=== PATIENT | male | born 1970 | race Caucasian/White ===

== ENCOUNTER 2017-07-20 10:49 | Day surgery (SDC) | payer SELFPAY ==
[2017-07-20] MEDS ORDERED: Glucagon,Human Recombinant 1 MG Vial IM ONE (11:28)
[2017-07-20] MEDS ORDERED: Sodium Chloride 0.9% 1,000 ML IV ONE (11:29)
--- NOTE | 2017-07-20 11:37 | EDM.PDOC ---
ED HPI GENERAL MEDICAL PROBLEM - General Chief Complaint: ENT Problem Stated Complaint: FOOD STUCK IN THROAT Time Seen by Provider: 07/20/17 11:31 Source of Information: Reports: Patient History Limitations: Reports: No Limitations - History of Present Illness INITIAL COMMENTS - FREE TEXT/NARRATIVE: HISTORY AND PHYSICAL: History of present illness: Patient is a 46-year-old male who presents to the emergency room today with complaints of a food bolus stuck in his throat. Reports that on Friday evening he was eating a hot dog and felt the sensation of a food bolus in his esophagus. States he's had half a dozen episodes similar to this in the past. He has had an EGD done and was told he has strictures but not enough to have his esophagus dilated by a specialist. After having the food bolus patient did multiple home remedies without any success. States he's tried Coca-Cola, warm water, salt water gargles, eating soft foods - all of which, he is unable to swallow and results in vomiting. He denies any difficulty breathing. Stating he is able to sleep for multiple hours before needing to get up and spit. Review of systems: As per history of present illness and below otherwise all systems reviewed and negative. Past medical history: As per history of present illness and as reviewed below otherwise noncontributory. Surgical history: As per history of present illness and as reviewed below otherwise noncontributory. Social history: No reported history of drug or alcohol abuse. Family history: As per history of present illness and as reviewed below otherwise noncontributory. Physical exam: Gen.: Well-developed and well-nourished 46-year-old male. Able to speak in full sentences without shortness of breath. Alert and oriented. HEENT: Atraumatic, normocephalic, pupils reactive, negative for conjunctival pallor or scleral icterus, mucous membranes moist, throat clear, unable to visualize any foreign body, neck supple, nontender, trachea midline. Lungs: Clear to auscultation, breath sounds equal bilaterally, chest nontender. Heart: S1S2, regular, negative for clicks, rubs, or JVD. Abdomen: Soft, obese, nondistended, nontender. Negative for masses or hepatosplenomegaly. Negative for costovertebral tenderness. Pelvis: Stable nontender. Genitourinary: Deferred. Rectal: Deferred. Extremities: Atraumatic, moves all per self, negative for cords or calf pain. Neurovascular unremarkable. Neuro: Awake, alert, oriented. Cranial nerves II through XII unremarkable. Cerebellum unremarkable. Motor and sensory unremarkable throughout. Exam nonfocal. Patient is requesting a steroid for his gout and headache. Patient states he does not want a work-up for his c/o gout as he already take controller medications for this, but thought he could get steriods to help alleviate his pain in left foot and headache. I educated patient that, that wasn't indicated at this time. I suggested we give some Toradol since he has IV access. His allergies do state he has allergy to aspirin. Patient states he takes ibuprofen frequently without any complications. Is willing to give Toradol a try. Attempted by mouth challenge which was unsuccessful. Dr. Dumont has been paged at this time. Patient has a card for Anesthesia, explaining that he is a difficult airway. A copy was made and placed in his chart. Christ Thomas, JEREMIAS who is here for another case, was informed of this. Waiting on consult from Dr. Dumont 1200- Dr Dumont was consulted on this case and will come to see patient. Patient is aware and agreeable to plan of care. 1250- Dr Dumont here to see patient. Plan is to take patient to same day surgery. Anesthesia is here. Diagnostics: CBC, CMP Therapeutics: Glucagon 1 mg Toradol IV fluid Impression: Food bolus Plan: Dr. Dumont has assumed care of patient, Same Day Surgery Definitive disposition and diagnosis as appropriate pending reevaluation and review of above. Onset Date: 07/18/17 Duration: Day(s): Location: Reports: Neck Worsens with: Reports: Eating Throat Pain Score (Numeric/FACES): 8 - Related Data Allergies Allergy/AdvReac Type Severity Reaction Status Date / Time aspirin Allergy Anaphylactic Verified 07/20/17 11:04 Shock Penicillins Allergy Anaphylactic Verified 07/20/17 11:04 Shock Home Meds: Home Meds Albuterol [Ventolin HFA] 2 puff INH ASDIRECTED PRN 08/14/16 [History] Allopurinol [Zyloprim] 300 mg PO ASDIRECTED 08/14/16 [History] Hydrochlorothiazide 1 tab PO DAILY 09/03/16 [History] Past Medical History HEENT History: Reports: Allergic Rhinitis, Other (See Below) Other HEENT History: "overactive esophageal muscles" esophagoscopy with foreign body removal x3 Cardiovascular History: Reports: Hypertension Respiratory History: Reports: Asthma, COPD, Sleep Apnea Other Respiratory History: uses CPAP Gastrointestinal History: Reports: Gastritis Genitourinary History: Reports: None Musculoskeletal History: Reports: Arthritis, Gout Neurological History: Reports: None Psychiatric History: Reports: None Endocrine/Metabolic History: Reports: Obesity/BMI 30+ Hematologic History: Reports: None Immunologic History: Reports: None Oncologic (Cancer) History: Reports: None Dermatologic History: Reports: None, Other (See Below) Other Dermatologic History: has rash on legs - Infectious Disease History Infectious Disease History: Reports: Chicken Pox - Past Surgical History Head Surgeries/Procedures: Reports: None HEENT Surgical History: Reports: Other (See Below) Other HEENT Surgeries/Procedures: "throat stretched" Cardiovascular Surgical History: Reports: None GI Surgical History: Reports: Appendectomy, Esophageal Dilatation, Hernia Repair /Other Male Surgical History: Reports: None Endocrine Surgical History: Reports: None Neurological Surgical History: Reports: None Musculoskeletal Surgical History: Reports: None Oncologic Surgical History: Reports: None Social & Family History - Family History Family Medical History: Noncontributory - Tobacco Use Smoking Status *Q: Never Smoker Second Hand Smoke Exposure: No - Alcohol Use Days Per Week of Alcohol Use: 0 Number of Drinks Per Day: 5 Total Drinks Per Week: 0 - Recreational Drug Use Recreational Drug Use: No Drug Use in Last 12 Months: No ED ROS ENT - Review of Systems Review Of Systems: ROS reveals no pertinent complaints other than HPI. ED EXAM, ENT - Physical Exam Exam: See Below (See dictation) Course - Vital Signs Last Recorded V/S: Last Vital Signs Temp 36.4 C 07/20/17 11:01 Pulse 75 07/20/17 12:41 Resp 18 07/20/17 12:41 BP 153/88 H 07/20/17 12:41 Pulse Ox 97 07/20/17 12:41 - Orders/Labs/Meds Orders: Active Orders 24 hr Category Date Time Status Admission Status [Patient Status] [ADT] Routine ADT 07/20/17 13:22 Ordered Communication Order [RC] STAT Care 07/20/17 11:30 Active Ready for Discharge [RC] PER UNIT ROUTINE Care 07/20/17 13:12 Active Verify Patient Consent Obtain [RC] ASDIRECTED Care 07/20/17 13:09 Active Nothing per Oral After Midnight Diet [DIET] Diet 07/20/17 Breakfast Active Chest 1V Frontal [CR] Stat Exams 07/20/17 12:01 Taken Lactated Ringers [Ringers, Lactated] 1,000 ml Med 07/20/17 13:15 Active IV ASDIRECTED Medication Orders Lactated Ringer's (Ringers, Lactated) 1,000 mls @ 125 mls/hr IV ASDIRECTED ZEENAT Last Admin: 07/20/17 13:14 Dose: 125 mls/hr Labs: Laboratory Tests 07/20/17 07/20/17 Range/Units 11:45 11:45 WBC 9.45 (4.0-11.0) K/uL RBC 4.70 (4.50-5.90) M/uL Hgb 15.0 (13.0-17.0) g/dL Hct 46.1 (38.0-50.0) % MCV 98.1 H (80.0-98.0) fL MCH 31.9 (27.0-32.0) pg MCHC 32.5 (31.0-37.0) g/dL RDW Std Deviation 47.6 (28.0-62.0) fl RDW Coeff of Ileana 13 (11.0-15.0) % Plt Count 254 (150-400) K/uL MPV 9.50 (7.40-12.00) fL Neut % (Auto) 68.7 (48.0-80.0) % Lymph % (Auto) 17.8 (16.0-40.0) % [place] % (Auto) 7.6 (0.0-15.0) % Eos % (Auto) 5.5 (0.0-7.0) % Baso % (Auto) 0.4 (0.0-1.5) % Neut # (Auto) 6.5 H (1.4-5.7) K/uL Lymph # (Auto) 1.7 (0.6-2.4) K/uL [place] # (Auto) 0.7 (0.0-0.8) K/uL Eos # (Auto) 0.5 (0.0-0.7) K/uL Baso # (Auto) 0.0 (0.0-0.1) K/uL Nucleated RBC % 0.0 /100WBC Nucleated RBCs # 0 K/uL Sodium 146 (136-146) mmol/L Potassium 4.2 (3.5-5.1) mmol/L Chloride 109 (98-110) mmol/L Carbon Dioxide 27 (21-31) mmol/L BUN 16 (6.0-23.0) mg/dL Creatinine 0.9 (0.6-1.5) mg/dL Est Cr Clr Drug Dosing 108.15 mL/min Estimated GFR (MDRD) > 60.0 ml/min Glucose 105 (60-110) mg/dL Calcium 9.8 (8.8-10.8) mg/dL Total Bilirubin 0.8 (0.1-1.5) mg/dL AST 20 (5-40) IU/L ALT 47 (8-54) IU/L Alkaline Phosphatase 75 (40-150) Total Protein 8.0 (6.0-8.0) g/dL Albumin 4.3 (3.5-5.0) g/dL Globulin 3.7 H (2.0-3.5) g/dL Albumin/Globulin Ratio 1.2 L (1.3-2.8) Meds: Medications Generic Name Dose Route Start Last Admin Trade Name Freq PRN Reason Stop Dose Admin Lactated Ringer's 1,000 mls @ 125 mls/hr 07/20/17 13:15 07/20/17 13:14 Ringers, Lactated IV 125 mls/hr ASDIRECTED ZEENAT Administration Discontinued Medications Generic Name Dose Route Start Last Admin Trade Name Freq PRN Reason Stop Dose Admin Glucagon 1 mg 07/20/17 11:28 07/20/17 11:44 Glucagen IM 07/20/17 11:29 1 mg ONETIME ONE Administration Sodium Chloride 1,000 mls @ 999 mls/hr 07/20/17 11:29 07/20/17 11:44 Normal Saline IV 07/20/17 12:29 999 mls/hr STAT ONE Administration Ketorolac Tromethamine 30 mg 07/20/17 11:55 07/20/17 12:03 Toradol IVPUSH 07/20/17 11:56 30 mg ONETIME ONE Administration Departure - Departure Time of Disposition: 13:26 Disposition: Still A Patient 30 Clinical Impression: Sensation of foreign body in esophagus, Foreign body in esophagus - Discharge Information - My Orders Last 24 Hours: My Active Orders 07/20/17 11:30 Communication Order [RC] STAT 07/20/17 12:01 Chest 1V Frontal [CR] Stat 07/20/17 13:22 Admission Status [Patient Status] [ADT] Routine - Assessment/Plan Last 24 Hours: My Active Orders 07/20/17 11:30 Communication Order [RC] STAT 07/20/17 12:01 Chest 1V Frontal [CR] Stat 07/20/17 13:22 Admission Status [Patient Status] [ADT] Routine
[2017-07-20] MEDS ORDERED: Ketorolac 30 MG/ML SDV IVPUSH ONE (11:55)
[2017-07-20 12:12] LABS: CHLORIDE,CL 109 mmol/L (98-110); SODIUM,NA 146 mmol/L (136-146)
[2017-07-20] MEDS ORDERED: Lactated Ringers 1,000 ML IV SCH (13:15)
--- NOTE | 2017-07-20 13:45 | PCM.PREANE ---
Preanesthetic Assessment - Anesthesia/Transfusion/Family Hx Anesthesia History: Prior Anesthesia Reaction Other Type of Anesthesia Reaction Comment: chest pain post-op Transfusion History: No Prior Transfusion(s) Intubation History: History of Difficulty Intubation (x 3 at this hospital) - Review of Systems General: No Symptoms Pulmonary: No Symptoms Cardiovascular: No Symptoms Gastrointestinal: No Symptoms Neurological: No Symptoms Other: Reports: None - Physical Assessment O2 Sat by Pulse Oximetry: 97 Respiratory Rate: 18 Vital Signs: Last Vital Signs Temp 97.5 F 07/20/17 11:01 Pulse 75 07/20/17 12:41 Resp 18 07/20/17 12:41 BP 153/88 H 07/20/17 12:41 Pulse Ox 97 07/20/17 12:41 Height: 5 ft 10 in Weight: 144.8 kg ASA Class: 3E Mental Status: Alert & Oriented x3 Airway Class: Mallampati = 4 Dentition: Reports: Normal Dentition Thyro-Mental Finger Breadths: 2 Mouth Opening Finger Breadths: 3 ROM/Head Extension: Full Lungs: Clear to Auscultation, Normal Respiratory Effort Cardiovascular: Regular Rate, Regular Rhythm - Lab Values: Laboratory Last Values WBC 9.45 K/uL (4.0-11.0) 07/20/17 11:45 RBC 4.70 M/uL (4.50-5.90) 07/20/17 11:45 Hgb 15.0 g/dL (13.0-17.0) 07/20/17 11:45 Hct 46.1 % (38.0-50.0) 07/20/17 11:45 MCV 98.1 fL (80.0-98.0) H 07/20/17 11:45 MCH 31.9 pg (27.0-32.0) 07/20/17 11:45 MCHC 32.5 g/dL (31.0-37.0) 07/20/17 11:45 RDW Std Deviation 47.6 fl (28.0-62.0) 07/20/17 11:45 RDW Coeff of Ileana 13 % (11.0-15.0) 07/20/17 11:45 Plt Count 254 K/uL (150-400) 07/20/17 11:45 MPV 9.50 fL (7.40-12.00) 07/20/17 11:45 Neut % (Auto) 68.7 % (48.0-80.0) 07/20/17 11:45 Lymph % (Auto) 17.8 % (16.0-40.0) 07/20/17 11:45 [place] % (Auto) 7.6 % (0.0-15.0) 07/20/17 11:45 Eos % (Auto) 5.5 % (0.0-7.0) 07/20/17 11:45 Baso % (Auto) 0.4 % (0.0-1.5) 07/20/17 11:45 Neut # (Auto) 6.5 K/uL (1.4-5.7) H 07/20/17 11:45 Lymph # (Auto) 1.7 K/uL (0.6-2.4) 07/20/17 11:45 [place] # (Auto) 0.7 K/uL (0.0-0.8) 07/20/17 11:45 Eos # (Auto) 0.5 K/uL (0.0-0.7) 07/20/17 11:45 Baso # (Auto) 0.0 K/uL (0.0-0.1) 07/20/17 11:45 Nucleated RBC % 0.0 /100WBC 07/20/17 11:45 Nucleated RBCs # 0 K/uL 07/20/17 11:45 Sodium 146 mmol/L (136-146) 07/20/17 11:45 Potassium 4.2 mmol/L (3.5-5.1) 07/20/17 11:45 Chloride 109 mmol/L (98-110) 07/20/17 11:45 Carbon Dioxide 27 mmol/L (21-31) 07/20/17 11:45 BUN 16 mg/dL (6.0-23.0) 07/20/17 11:45 Creatinine 0.9 mg/dL (0.6-1.5) 07/20/17 11:45 Est Cr Clr Drug Dosing 108.15 mL/min 07/20/17 11:45 Estimated GFR (MDRD) > 60.0 ml/min 07/20/17 11:45 Glucose 105 mg/dL (60-110) 07/20/17 11:45 Calcium 9.8 mg/dL (8.8-10.8) 07/20/17 11:45 Total Bilirubin 0.8 mg/dL (0.1-1.5) 07/20/17 11:45 AST 20 IU/L (5-40) 07/20/17 11:45 ALT 47 IU/L (8-54) 07/20/17 11:45 Alkaline Phosphatase 75 (40-150) 07/20/17 11:45 Total Protein 8.0 g/dL (6.0-8.0) 07/20/17 11:45 Albumin 4.3 g/dL (3.5-5.0) 07/20/17 11:45 Globulin 3.7 g/dL (2.0-3.5) H 07/20/17 11:45 Albumin/Globulin Ratio 1.2 (1.3-2.8) L 07/20/17 11:45 - Allergies Allergies/Adverse Reactions: Allergies Allergy/AdvReac Type Severity Reaction Status Date / Time aspirin Allergy Anaphylactic Verified 07/20/17 11:04 Shock Penicillins Allergy Anaphylactic Verified 07/20/17 11:04 Shock - Anesthesia Plan Free Text/Narrative:: The patient and his significant other were at the bedside during the anesthesia assessment. The patient does have a history of difficult intubation at this hospital on three separate occasions. I explained to the patient that there still remains a chance that we may not be able to get him intubate and that we would wake him up instead of proceeding with the procedure. I also explained the possibility of Circo and trach placement should an emergent airway become necessary during induction. The patient understands and wishes to proceed at this time. - Acknowledgements Anesthesia Type Planned: General Anesthesia Pt an Appropriate Candidate for the Planned Anesthesia: Yes Alternatives and Risks of Anesthesia Discussed w Pt/Guardian: Yes Pt/Guardian Understands and Agrees with Anesthesia Plan: Yes PreAnesthesia Questionnaire HEENT History: Reports: Allergic Rhinitis, Other (See Below) Other HEENT History: "overactive esophageal muscles" esophagoscopy with foreign body removal x3 Cardiovascular History: Reports: Hypertension Respiratory History: Reports: Asthma, COPD, Sleep Apnea Other Respiratory History: uses CPAP Gastrointestinal History: Reports: Gastritis Genitourinary History: Reports: None Musculoskeletal History: Reports: Arthritis, Gout Neurological History: Reports: None Psychiatric History: Reports: None Endocrine/Metabolic History: Reports: Obesity/BMI 30+, Other (See Below) (Gout) Hematologic History: Reports: None Immunologic History: Reports: None Oncologic (Cancer) History: Reports: None Dermatologic History: Reports: None, Other (See Below) Other Dermatologic History: has rash on legs - Infectious Disease History Infectious Disease History: Reports: Chicken Pox - Past Surgical History Head Surgeries/Procedures: Reports: None HEENT Surgical History: Reports: Other (See Below) Other HEENT Surgeries/Procedures: "throat stretched" Cardiovascular Surgical History: Reports: None GI Surgical History: Reports: Appendectomy, Esophageal Dilatation, Hernia Repair /Other (umbilical x1 with revision for infection x 1) Male Surgical History: Reports: None Endocrine Surgical History: Reports: None Neurological Surgical History: Reports: None Musculoskeletal Surgical History: Reports: None Oncologic Surgical History: Reports: None - SUBSTANCE USE Smoking Status *Q: Never Smoker Tobacco Use Within Last Twelve Months: No Second Hand Smoke Exposure: No Days Per Week of Alcohol Use: 0 Number of Drinks Per Day: 5 Total Drinks Per Week: 0 Recreational Drug Use History: No - HOME MEDS Home Medications: Home Meds Albuterol [Ventolin HFA] 2 puff INH ASDIRECTED PRN 08/14/16 [History] Allopurinol [Zyloprim] 300 mg PO ASDIRECTED 08/14/16 [History] Hydrochlorothiazide 1 tab PO DAILY 09/03/16 [History] - CURRENT (IN HOUSE) MEDS Current Meds: Current Medications Lactated Ringer's (Ringers, Lactated) 1,000 mls @ 125 mls/hr IV ASDIRECTED [facility] Last Admin: 07/20/17 13:14 Dose: 125 mls/hr Discontinued Medications Glucagon (Glucagen) 1 mg IM ONETIME ONE Stop: 07/20/17 11:29 Last Admin: 07/20/17 11:44 Dose: 1 mg Sodium Chloride (Normal Saline) 1,000 mls @ 999 mls/hr IV STAT ONE Stop: 07/20/17 12:29 Last Admin: 07/20/17 11:44 Dose: 999 mls/hr Ketorolac Tromethamine (Toradol) 30 mg IVPUSH ONETIME ONE Stop: 07/20/17 11:56 Last Admin: 07/20/17 12:03 Dose: 30 mg
--- NOTE | 2017-07-20 14:20 | PCM.OPNOTE ---
- General Post-Op/Procedure Note Date of Surgery/Procedure: 07/20/17 Operative Procedure(s): egd w fb extraction Findings: see dict [id number] Pre Op Diagnosis: food lodged Post-Op Diagnosis: Same Anesthesia Technique: General ET Tube Primary Surgeon: Martin Dumont Condition: Fair
[2017-07-20] MEDS ORDERED: Propofol 200 MG/20 ML SDV ONE (14:22)
[2017-07-20] MEDS ORDERED: fentaNYL 100 MCG/2 ML SDV ONE (14:22)
[2017-07-20] MEDS ORDERED: Lidocaine 2% 5 ML SDV ONE (14:22)
[2017-07-20] MEDS ORDERED: Succinylcholine/Normal Saline 200 MG/10 ML Syringe ONE (14:22)
[2017-07-20] MEDS ORDERED: Dexamethasone 4 MG/ML 5 ML MDV ONE (14:22)
[2017-07-20] MEDS ORDERED: Midazolam 1 MG/ML 2 ML SDV ONE (14:22)
[2017-07-20] MEDS ORDERED: Ondansetron 4 MG/2 ML SDV ONE (14:22)
[2017-07-20] MEDS ORDERED: Rocuronium 10 MG/ML 10 ML Syringe ONE (14:22)
--- NOTE | 2017-07-20 14:57 | PCM.SN ---
- Free Text/Narrative Note: Induction/Intubation Note The patient was brought to OR - 3 per cart, beach chair (HOB 30 degrees) position was obtained and a pillow was tucked underneath the patients shoulders. This allowed for full extension and the patient denies any pain with positioning. The patient was then pre-oxygenated while monitoring was attached. RSI was performed per anesthesia flow sheet. 4.0 LMA was placed easily with easy manual respirations. Once an adequate level of sevoflurane was obtained, the LMA was removed and Glidescope #4 was introduced, Grade I view was noted, 8.0 ETT was placed using rigid glide scope stylet. +BBS and + EtCO2. The patient tolerated induction without any complications. It should also be noted that full relaxation was obtained using the induction doses I have documented. See anesthesia flow sheet for all other intra-op documentation on this patient.
--- NOTE | 2017-07-20 14:59 | PCM.POSTAN ---
POST ANESTHESIA ASSESSMENT - MENTAL STATUS Mental Status: Alert, Oriented - RESPIRATORY Respiratory Status: Respiratory Rate WNL, Airway Patent, O2 Saturation Stable - CARDIOVASCULAR CV Status: Pulse Rate WNL, Blood Pressure Stable - GASTROINTESTINAL GI Status: No Symptoms - POST OP HYDRATION Hydration Status: Adequate & Stable
--- NOTE | 2017-07-20 15:10 | OR ---
SURGEON: Martin Dumont MD DATE OF PROCEDURE: 07/20/2017 PREOPERATIVE DIAGNOSIS: Food stuck in the throat. POSTOPERATIVE DIAGNOSIS: Food stuck in the throat. PROCEDURE PERFORMED: Esophagogastroduodenoscopy with foreign body extraction. COMPLICATIONS: None. FINDINGS: A piece of meat, very large, that is already pretty mushy and it has been three days, so the piece of meat is not impact and is moving in the esophagus, moving up and down, broke into two pieces, one piece took it out and another piece pushed in. We scoped all the way to the duodenum, no stricture observed. DESCRIPTION OF PROCEDURE: The patient was taken to the operating room and placed in supine position. Upon induction of general endotracheal anesthesia, a time-out was being called, the patient was identified, procedure identified. The patient had difficult airway and the patient was intubated with fiberoptic and then well lubricated EGD was then gently inserted through the oropharynx down into the esophagus. Right at the beginning of the esophagus that is right after the pharynx, a piece of meat was encountered. It is not impacted and it is presently moving freely up and down, but is already very decayed, it has been three days, grabbed it with biopsy forceps and broken in two pieces, upper piece we retrieved through the scope and the other half pushed into the stomach. GE junction at 40 was pretty inflamed. Stomach was pretty empty. No food particle. No bile. Duodenum was grossly normal. A retroflexed look at the fundus of stomach, there was no hiatal hernia. The scope was then sucked out the air and withdrawn. Throughout the whole study, there was no blood, ulcer, or stricture encountered. The patient will be on liquid diet for 2 days because of the edema and inflammation and will follow with me in two weeks. As always, thank you for the kind referral. MIGDALIA / TEDDY /[id number]
--- NOTE | 2017-07-20 15:30 | PCM48HPAN ---
Post Anesthesia Note - EVALUATION WITHIN 48HRS OF ANESTHETIC Vital Signs in Normal Range: Yes Patient Participated in Evaluation: Yes Respiratory Function Stable: Yes Airway Patent: Yes Cardiovascular Function Stable: Yes Hydration Status Stable: Yes Pain Control Satisfactory: Yes Nausea and Vomiting Control Satisfactory: Yes Mental Status Recovered: Yes - COMMENTS/OBSERVATIONS Free Text/Narrative:: Discussed with the patient and his spouse how intubation went this time. New updated difficult airway card was issued with what works well and with what has failed in the past.
[2017-07-20 16:54] VITALS: BP 147/71
--- NOTE | 2017-07-21 10:37 | HP ---
DATE OF : 1970 PRIMARY CARE PHYSICIAN: Randy Nguyen MD HISTORY OF PRESENT ILLNESS: The patient is a 46-year-old obese gentleman and complaining over a 3-day history of food block and cannot swallow own saliva. Denied shortness of breath, denied syncope, and denied chest pain or abdominal pain. The patient has a long history of several episodes of food block and the latest one was balloon dilatation in [place] by a specialist. The patient also had difficult airway. PAST MEDICAL HISTORY: Denied diabetes, [place], or CVA. The patient has hypertension. PAST SURGICAL HISTORY: Umbilical hernia repair by Dr. Schaffer 1 year ago and an EGD with dilatation several years ago. ALLERGIES: Please refer to nursing note for detail. MEDICATION: Please refer to nursing note for detail. SOCIAL HISTORY: Noncontributory. REVIEW OF SYSTEMS: Same as history of present illness. PHYSICAL EXAMINATION: GENERAL: A very pleasant, nice gentleman, in no acute distress. HEENT: Normocephalic, atraumatic. Sclerae anicteric. LUNGS: Clear to auscultation. HEART: Regular rate and rhythm. ABDOMEN: Soft, nondistended. No pulsating tender midline abdominal structure. Nontender. IMPRESSION: Food block in the throat for about 2-1/2 days. The patient had a glass of water, he choked and spit it all and required to have an EGD with foreign body extraction. Risks and benefits were discussed with the patient including bleeding, infection, and perforation. The patient concurred to proceed as planned. As always, thank you for the kind referral. MIGDALIA / TEDDY /[id number]
--- NOTE | 2017-07-23 10:09 | CR ---
EXAM DATE: 07/20/17 PATIENT'S AGE: 46 Patient: AQUILES NORTON Facility: [facility] Site Site : 1970 Study: XRay-Chest [id number] 3:17:09 PM Ordering Physician: ANSON Final Report: INDICATION: PAIN, SHORTNESS OF BREATH TECHNIQUE: Chest 1 view. COMPARISON: 11/08/2014 FINDINGS: Cardiovascular and mediastinum: Heart size and vasculature are normal in caliber and appearance. Mediastinum is within normal limits. Lungs and pleural space: Lungs are clear. No sign of infiltrate or mass. No sign of pleural effusion. No pneumothorax. Bones and soft tissues: No significant findings. IMPRESSION: Unremarkable chest. Dictated by: Santos Schaffer MD @ 07/22/2017 15:51:31 Signed by: Santos Schaffer MD @07/22/2017 3:51:31 PM (Electronic Signature) Report Signed by Proxy. [facility]
== END 2017-07-20 17:10 | disposition home or self-care (01) ==
LOC: MW.ED 10:49 → MW.SDS 13:19 → MW.MS 13:21 → UNDOADMOB 13:22 → MW.SDS 13:22 → MW.MS 15:19 → MW.SDS 17:10 → UNDODISOB 17:10
PROVIDERS: ATTEND Surgery
DX: T18.128A Food in esophagus causing other injury, initial encounter (principal); E66.9 Obesity, unspecified; I10 Essential (primary) hypertension; J44.9 Chronic obstructive pulmonary disease, unspecified; G47.30 Sleep apnea, unspecified; M19.90 Unspecified osteoarthritis, unspecified site; M10.9 Gout, unspecified; Z90.49 Acquired absence of other specified parts of digestive tract; Z98.890 Other specified postprocedural states; Z88.0 Allergy status to penicillin; Z88.6 Allergy status to analgesic agent; Z99.89 Dependence on other enabling machines and devices
CPT/HCPCS: 36415; 43247; 71010; 80053; 85025; 96361; 96372; 96374; 99284; J1100; J1610; J1885; J2250; J2405; J3010; J7040; J7120; 00740; 99285; J2704

== ENCOUNTER 2017-09-16 19:26 | Day surgery (SDC) | payer BC ==
[2017-09-16] MEDS ORDERED: Ondansetron 4 MG/2 ML SDV IVPUSH ONE (19:48)
[2017-09-16] MEDS ORDERED: Glucagon,Human Recombinant 1 MG Vial IVPUSH ONE (19:48)
--- NOTE | 2017-09-16 20:05 | EDM.PDOC ---
ED HPI GENERAL MEDICAL PROBLEM - General Chief Complaint: ENT Problem Stated Complaint: FOOD STUCK IN THROAT Time Seen by Provider: 09/16/17 19:37 Source of Information: Reports: Patient History Limitations: Reports: No Limitations - History of Present Illness INITIAL COMMENTS - FREE TEXT/NARRATIVE: HISTORY AND PHYSICAL: History of present illness: Patient is a 46-year-old male who presents to the emergency room with complaints of a food bolus in his esophagus. He states around 5 PM this evening he was eating pork ribs and corn felt a piece of food lodged in his esophagus. He reports he has had similar episodes to this at least a half a dozen times. The last episode required Dr. Florentino to take him back to the OR on 07/20/2017. Has had an EGD with dilation many years ago. States that they have been waiting for his primary caregiver to give him a referral to have an EGD done by a specialist. Has tried water, Sprite, soft food - unable to swallow anything as it "comes right back up". He denies any shortness of breath, chest pain, syncope, fever or chills. Review of systems: As per history of present illness and below otherwise all systems reviewed and negative. Past medical history: As per history of present illness and as reviewed below otherwise noncontributory. Surgical history: As per history of present illness and as reviewed below otherwise noncontributory. Social history: No reported history of drug or alcohol abuse. Family history: As per history of present illness and as reviewed below otherwise noncontributory. Physical exam: HEENT: Atraumatic, normocephalic, pupils reactive, negative for conjunctival pallor or scleral icterus, mucous membranes moist, throat clear, neck supple, nontender, trachea midline. No drooling or trismus. Lungs: Clear to auscultation, breath sounds equal bilaterally, chest nontender.No difficulty in breathing. Heart: S1S2, regular rate and rhythm without any overt murmurs. Abdomen: Soft, obese, nondistended, nontender. Negative for masses. Negative for costovertebral tenderness. Pelvis: Stable nontender. Genitourinary: Deferred. Rectal: Deferred. Extremities: Atraumatic, moves all extremities per self without any difficulty , negative for cords or calf pain. Neurovascular unremarkable. Neuro: Awake, alert, oriented. Cranial nerves II through XII unremarkable. Cerebellum unremarkable. Motor and sensory unremarkable throughout. Exam nonfocal. 2015: Chest x-ray is negative/unremarkable. Glucagon was given IV, as ordered. He reports "this never works for me". He is aware that we need try this route first prior to calling the surgeon. An oral challenge was completed and was unsuccessful. Dr. Dumont was consulted at this time. He states he will come in to see the patient. 2044- Dr Dumont here to see patient. Patient will go to OR for EGD of esophageal foreign body. Diagnostics: Chest x-ray Therapeutics: Zofran, glucagon Impression: Esophageal foreign body, food bolus Plan: Dr Dumont assuming care of patient, EGD will be done back in the OR. Definitive disposition and diagnosis as appropriate pending reevaluation and review of above. Onset: Today Duration: Hour(s): Location: Reports: Neck throat Pain Score (Numeric/FACES): 5 - Related Data Allergies Allergy/AdvReac Type Severity Reaction Status Date / Time aspirin Allergy Anaphylactic Verified 09/16/17 19:48 Shock Penicillins Allergy Anaphylactic Verified 09/16/17 19:48 Shock Home Meds: Home Meds Albuterol [Ventolin HFA] 2 puff INH ASDIRECTED PRN 08/14/16 [History] Allopurinol [Zyloprim] 300 mg PO ASDIRECTED 08/14/16 [History] Hydrochlorothiazide 1 tab PO DAILY 09/03/16 [History] Past Medical History HEENT History: Reports: Allergic Rhinitis, Other (See Below) Other HEENT History: "overactive esophageal muscles" esophagoscopy with foreign body removal x3 Cardiovascular History: Reports: Hypertension Respiratory History: Reports: Asthma, COPD, Sleep Apnea Other Respiratory History: uses CPAP Gastrointestinal History: Reports: Gastritis Genitourinary History: Reports: None Musculoskeletal History: Reports: Arthritis, Gout Neurological History: Reports: None Psychiatric History: Reports: None Endocrine/Metabolic History: Reports: Obesity/BMI 30+, Other (See Below) (Gout) Hematologic History: Reports: None Immunologic History: Reports: None Oncologic (Cancer) History: Reports: None Dermatologic History: Reports: None, Other (See Below) Other Dermatologic History: has rash on legs - Infectious Disease History Infectious Disease History: Reports: Chicken Pox - Past Surgical History Head Surgeries/Procedures: Reports: None HEENT Surgical History: Reports: Other (See Below) Other HEENT Surgeries/Procedures: "throat stretched" Cardiovascular Surgical History: Reports: None GI Surgical History: Reports: Appendectomy, Esophageal Dilatation, Hernia Repair /Other (umbilical x1 with revision for infection x 1) Male Surgical History: Reports: None Endocrine Surgical History: Reports: None Neurological Surgical History: Reports: None Musculoskeletal Surgical History: Reports: None Oncologic Surgical History: Reports: None Social & Family History - Family History Family Medical History: Noncontributory - Tobacco Use Smoking Status *Q: Never Smoker Second Hand Smoke Exposure: No - Alcohol Use Days Per Week of Alcohol Use: 0 Number of Drinks Per Day: 5 Total Drinks Per Week: 0 - Recreational Drug Use Recreational Drug Use: No Drug Use in Last 12 Months: No ED ROS ENT - Review of Systems Review Of Systems: ROS reveals no pertinent complaints other than HPI. ED EXAM, ENT - Physical Exam Exam: See Below (See dictation) Course - Vital Signs Last Recorded V/S: Last Vital Signs Temp 98 F 09/16/17 19:49 Pulse 94 09/16/17 19:49 Resp 18 09/16/17 19:49 BP 175/105 H 09/16/17 19:49 Pulse Ox 98 09/16/17 19:49 - Orders/Labs/Meds Orders: Active Orders 24 hr Category Date Time Status Chest 1V Frontal [CR] Stat Exams 09/16/17 19:49 Taken Meds: Medications Discontinued Medications Generic Name Dose Route Start Last Admin Trade Name Freq PRN Reason Stop Dose Admin Glucagon 1 mg 09/16/17 19:48 09/16/17 20:11 Glucagen IVPUSH 09/16/17 19:49 1 mg ONETIME ONE Administration Ondansetron HCl 4 mg 09/16/17 19:48 09/16/17 20:11 Zofran IVPUSH 09/16/17 19:49 4 mg ONETIME ONE Administration Departure - Departure Time of Disposition: 20:50 Disposition: Still A Patient 30 Clinical Impression: Esophageal foreign body Qualifiers: Encounter type: initial encounter Qualified Code(s): T18.108A - Unspecified foreign body in esophagus causing other injury, initial encounter - Discharge Information Referrals: PCP,None [Primary Care Provider] - Forms: ED Department Discharge - My Orders Last 24 Hours: My Active Orders 09/16/17 19:49 Chest 1V Frontal [CR] Stat - Assessment/Plan Last 24 Hours: My Active Orders 09/16/17 19:49 Chest 1V Oneil [CR] Stat
[2017-09-16] MEDS ORDERED: Lactated Ringers 1,000 ML IV SCH (21:30)
--- NOTE | 2017-09-16 22:30 | PCM.PREANE ---
Preanesthetic Assessment - Procedure Proposed Procedure: EGD for retrieval of stuck food - Anesthesia/Transfusion/Family Hx Anesthesia History: Prior Anesthesia Reaction Other Type of Anesthesia Reaction Comment: chest pain post-op Family History of Anesthesia Reaction: No Transfusion History: No Prior Transfusion(s) Intubation History: History of Difficulty Intubation (x 3 at this hospital) Additional History: Hx of difficult airway: Glidescope #4 or 2 person access with straight blade vs MAC #3 - Review of Systems General: Other (esophageal food lodged) Pulmonary: No Symptoms, Other (sleep apnea ) Cardiovascular: Other (hypertension) Gastrointestinal: Other (GERD) Neurological: No Symptoms Other: Reports: None - Physical Assessment NPO Status Date: 09/16/17 NPO Status Time: 21:00 O2 Sat by Pulse Oximetry: 94 Respiratory Rate: 17 Vital Signs: Last Vital Signs Temp 98.7 F 09/16/17 21:20 Pulse 79 09/16/17 21:20 Resp 17 09/16/17 21:20 BP 174/91 H 09/16/17 21:20 Pulse Ox 94 L 09/16/17 21:20 Height: 5 ft 10 in Weight: 322 lb 12.108 oz ASA Class: 3E Mental Status: Alert & Oriented x3 Airway Class: Mallampati = 3 Dentition: Reports: Normal Dentition Thyro-Mental Finger Breadths: 3 Mouth Opening Finger Breadths: 3 (sloped palate) ROM/Head Extension: Limited/Partial (full short neck) Lungs: Clear to Auscultation, Normal Respiratory Effort Cardiovascular: Regular Rate, Regular Rhythm, No Murmurs - Allergies Allergies/Adverse Reactions: Allergies Allergy/AdvReac Type Severity Reaction Status Date / Time aspirin Allergy Anaphylactic Verified 09/16/17 19:48 Shock Penicillins Allergy Anaphylactic Verified 09/16/17 19:48 Shock - Blood Blood Available: No Product(s) Available: None - Anesthesia Plan Pre-Op Medication Ordered: None - Acknowledgements Anesthesia Type Planned: General Anesthesia (OET due to full stomach with meat) Pt an Appropriate Candidate for the Planned Anesthesia: Yes Alternatives and Risks of Anesthesia Discussed w Pt/Guardian: Yes Pt/Guardian Understands and Agrees with Anesthesia Plan: Yes PreAnesthesia Questionnaire HEENT History: Reports: Allergic Rhinitis, Other (See Below) Other HEENT History: "overactive esophageal muscles" esophagoscopy with foreign body removal x3 Cardiovascular History: Reports: Hypertension Respiratory History: Reports: Asthma, COPD, Sleep Apnea Other Respiratory History: uses CPAP Gastrointestinal History: Reports: Gastritis Genitourinary History: Reports: None Musculoskeletal History: Reports: Arthritis, Gout Neurological History: Reports: None Psychiatric History: Reports: None Endocrine/Metabolic History: Reports: Obesity/BMI 30+, Other (See Below) (Gout) Hematologic History: Reports: None Immunologic History: Reports: None Oncologic (Cancer) History: Reports: None Dermatologic History: Reports: None, Other (See Below) Other Dermatologic History: has rash on legs - Infectious Disease History Infectious Disease History: Reports: Chicken Pox - Past Surgical History Head Surgeries/Procedures: Reports: None HEENT Surgical History: Reports: Other (See Below) Other HEENT Surgeries/Procedures: "throat stretched" Cardiovascular Surgical History: Reports: None GI Surgical History: Reports: Appendectomy, Esophageal Dilatation, Hernia Repair /Other (umbilical x1 with revision for infection x 1) Male Surgical History: Reports: None Endocrine Surgical History: Reports: None Neurological Surgical History: Reports: None Musculoskeletal Surgical History: Reports: None Oncologic Surgical History: Reports: None - SUBSTANCE USE Smoking Status *Q: Never Smoker Tobacco Use Within Last Twelve Months: No Second Hand Smoke Exposure: No Days Per Week of Alcohol Use: 0 Number of Drinks Per Day: 5 Total Drinks Per Week: 0 Recreational Drug Use History: No - HOME MEDS Home Medications: Home Meds Albuterol [Ventolin HFA] 2 puff INH ASDIRECTED PRN 08/14/16 [History] Allopurinol [Zyloprim] 300 mg PO ASDIRECTED 08/14/16 [History] Hydrochlorothiazide 1 tab PO DAILY 09/03/16 [History] - CURRENT (IN HOUSE) MEDS Current Meds: Current Medications Lactated Ringer's (Ringers, Lactated) 1,000 mls @ 125 mls/hr IV ASDIRECTED ZEENAT Last Admin: 09/16/17 22:14 Dose: 125 mls/hr Discontinued Medications Glucagon (Glucagen) 1 mg IVPUSH ONETIME ONE Stop: 09/16/17 19:49 Last Admin: 09/16/17 20:11 Dose: 1 mg Ondansetron HCl (Zofran) 4 mg IVPUSH ONETIME ONE Stop: 09/16/17 19:49 Last Admin: 09/16/17 20:11 Dose: 4 mg
[2017-09-16] MEDS ORDERED: Propofol 200 MG/20 ML SDV ONE (22:38)
[2017-09-16] MEDS ORDERED: fentaNYL 100 MCG/2 ML SDV ONE (22:40)
[2017-09-16] MEDS ORDERED: ePHEDrine 50 MG/ML SDV ONE (22:40)
[2017-09-16] MEDS ORDERED: Lidocaine 2% 5 ML SDV ONE (22:40)
[2017-09-16] MEDS ORDERED: Midazolam 1 MG/ML 2 ML SDV ONE (22:41)
[2017-09-16] MEDS ORDERED: diphenhydrAMINE 50 MG/ML SDV ONE (22:59)
[2017-09-16] MEDS ORDERED: Ondansetron 4 MG/2 ML SDV ONE (22:59)
[2017-09-16] MEDS ORDERED: Glucagon,Human Recombinant 1 MG Vial ONE (23:09)
[2017-09-16] MEDS ORDERED: Flumazenil 0.1 MG/ML 5 ML MDV ONE (23:11)
[2017-09-16] MEDS ORDERED: fentaNYL 100 MCG/2 ML SDV IVPUSH PRN (23:21)
--- NOTE | 2017-09-16 23:36 | PCM.POSTAN ---
POST ANESTHESIA ASSESSMENT - MENTAL STATUS Mental Status: Alert, Oriented - VITAL SIGNS Pulse Rate: 84 SaO2: 97 Resp Rate: 16 Blood Pressure: 164/84 - RESPIRATORY Respiratory Status: Respiratory Rate WNL, Airway Patent, O2 Saturation Stable - CARDIOVASCULAR CV Status: Pulse Rate WNL, Blood Pressure Stable - GASTROINTESTINAL GI Status: No Symptoms - POST OP HYDRATION Hydration Status: Adequate & Stable
--- NOTE | 2017-09-16 23:53 | PCM.OPNOTE ---
- General Post-Op/Procedure Note Date of Surgery/Procedure: 09/16/17 Operative Procedure(s): egd w foreign object extraction Findings: large piece of meat stucked at 20cm of egd scope; [id number] Pre Op Diagnosis: food stucked Post-Op Diagnosis: Same Anesthesia Technique: General ET Tube Primary Surgeon: Martin Dumont Complications: None Condition: Fair Free Text/Narrative:: Intake & Output 09/16/17 09/16/17 09/17/17 14:59 22:59 06:59 Intake Total 300 Balance 300
[2017-09-17 01:13] VITALS: BP 142/91
--- NOTE | 2017-09-17 02:00 | HP ---
DATE OF : 1970 PRIMARY CARE PHYSICIAN: None PCP This is a consult from the ER concerning question of food stuck in the throat. HISTORY OF PRESENT ILLNESS: The patient is a 46-year-old obese gentleman and complained of a 4- hour history of food stuck in the throat and denied shortness of breath and chest pain. The patient has multiple episodes of food stuck in the throat. The last 1 was only a few days ago. He had also history of balloon dilatation in the past and has an other episodes of food stuck in the throat; and currently, the patient is totally asymptomatic and has 1 mg of IV glucagon, does not do nothing, and gave the patient a cup of water and he spitted all out and with face turned red. PAST MEDICAL HISTORY: Denied diabetic, IN, or CVA. The patient has hypertension and the patient is morbidly obese. PAST SURGICAL HISTORY: Umbilical hernia repair by Dr. Schaffer 1 years ago and EGD dilatation several years ago. ALLERGIES: Please refer to nursing for details. MEDICATIONS: Please refer to nursing for details. SOCIAL HISTORY: The patient is nonsmoker and social alcohol drinker. REVIEW OF SYSTEMS: Same as history of present illness. PHYSICAL EXAMINATION: GENERAL: Very pleasant, nice gentleman, in no acute distress. HEENT: Normocephalic, atraumatic. Sclerae anicteric. LUNGS: Clear to auscultation. No stridor. HEART: Regular rate and rhythm. ABDOMEN: Soft, nondistended, nonpulsating, tender midline abdominal structure. LABORATORY DATA: Chest x-ray is unremarkable in the emergency room. IMPRESSION: Another episode of food stuck in the throat and will benefit from a timely gastroscopy with foreign body extraction. Risks and benefits discussed with the patient including bleeding, infection, possible perforation, outweighed the risks is very low, and the patient concurred to proceed as planned. As always, thank you for your kind referral. MIGDALIA / TEDDY /[id number]
--- NOTE | 2017-09-17 08:34 | OR ---
SURGEON: Martin Dumont MD DATE OF PROCEDURE: 09/16/2017 PREOPERATIVE DIAGNOSIS: Foreign body stuck in the throat. POSTOPERATIVE DIAGNOSIS: Foreign body stuck in the throat. PROCEDURE PERFORMED: EGD with foreign body extraction. COMPLICATIONS: None. FINDING: Large piece of meat stuck at 20 cm on EGD scope, no stricture observed. PROCEDURE IN DETAIL: The patient was taken to the operating room and placed in a supine position. Upon induction of general endotracheal anesthesia, a well-lubricated gastroscope was gently inserted through the oropharynx and down the esophagus. Around 20 cm, I encountered a piece of meat, stuck right there and water cannot go through. I sucked out the water, and using 3-pronged equipment, I attempted to pull up the meat and only pulled up a little piece, and went for a second time and pulled up a little more, and then the third time, we can push it through and the meat went all the way into the stomach. The area of the esophagus was quite edematous and also looked at the stomach. There was no blood and no ulcer, and scoped all the way to the duodenum without difficulty. I sucked out the air while the scope was pulling out. The patient tolerated the procedure well. There were no intraoperative complications. Dr. Dumont was present throughout the procedure. As always, thank you for the kind referral. MIGDALIA ESPINAL /[id number]
--- NOTE | 2017-09-17 11:13 | CR ---
EXAM DATE: 09/16/17 PATIENT'S AGE: 46 Patient: AQUILES NORTON Facility: [place], [place] Site . Site : 1970 Study: XRay Chest [id number]/12/2017 8:04:13 PM Ordering Physician: Doctor Clayton Final Report: INDICATION: Choking TECHNIQUE: Chest 1 view. COMPARISON: 07/20/17 FINDINGS: Cardiovascular and mediastinum: Heart size and vasculature are normal in caliber and appearance. Mediastinum is within normal limits. Lungs and pleural space: Lungs are clear. No sign of infiltrate or mass. No sign of pleural effusion. No pneumothorax. Bones and soft tissues: No significant findings. IMPRESSION: Unremarkable chest. Dictated by: Froilan Leary MD @ 09/16/2017 20:13:46 (Electronic Signature) Report Signed by Proxy. [facility]
== END 2017-09-17 01:00 | disposition home or self-care (01) ==
LOC: MW.ED 19:26 → MW.SDS 21:15
PROVIDERS: ATTEND Surgery
DX: T17.228A Food in pharynx causing other injury, initial encounter (principal); I10 Essential (primary) hypertension; E66.01 Morbid (severe) obesity due to excess calories
CPT/HCPCS: 43247; 71010; 96361; 96374; 96375; 99285; J1200; J1610; J2250; J2405; J3010; J7120; 00740; 99284; J2704

== ENCOUNTER 2019-09-30 10:51 | Emergency (ER) | payer BC, OTHER ==
[2019-09-30 11:22] VITALS: BP 171/102; PULSE 93
--- NOTE | 2019-09-30 11:34 | EDM.PDOC ---
ED HPI GENERAL MEDICAL PROBLEM - General Chief Complaint: Lower Extremity Injury/Pain Stated Complaint: SWOLLEN KNEE Time Seen by Provider: 09/30/19 11:09 Source of Information: Reports: Patient History Limitations: Reports: No Limitations - History of Present Illness INITIAL COMMENTS - FREE TEXT/NARRATIVE: Patient is a 48-year-old male who is complaining of having left knee pain which is gotten worse since this morning. Patient has a known history of gout for which he is on indomethacin and allopurinol and has been having some knee pain and swelling upon awakening this morning. He denies any recent trauma or any redness or warmth to the knee. He states it was more swollen earlier and looks better currently. Knee also buckled on patient this morning but he did not fall and there was no trauma. Denies any weakness of the lower extremity. Onset: Today Location: Reports: Lower Extremity, Left Quality: Reports: Ache, Throbbing Severity: Moderate Improves with: Reports: None Worsens with: Reports: Movement Associated Symptoms: Reports: No Other Symptoms Treatments [place] [employer]: Reports: NSAIDS left knee Pain Score (Numeric/FACES): 10 - Related Data Allergies Allergy/AdvReac Type Severity Reaction Status Date / Time aspirin Allergy Anaphylactic Verified 09/16/17 19:48 Shock latex Allergy Rash Verified 09/30/19 11:18 Penicillins Allergy Anaphylactic Verified 09/16/17 19:48 Shock Home Meds: Home Meds Albuterol [Ventolin HFA] 2 puff INH ASDIRECTED PRN 08/14/16 [History] Allopurinol [Zyloprim] 300 mg PO ASDIRECTED 08/14/16 [History] Hydrochlorothiazide 1 tab PO DAILY 09/03/16 [History] Hydrocodone/Acetaminophen [[place] 5-325 Tablet] 1 each PO Q4HR PRN #14 tablet [Rx] Past Medical History HEENT History: Reports: Allergic Rhinitis, Other (See Below) Other HEENT History: "overactive esophageal muscles" esophagoscopy with foreign body removal x3 Cardiovascular History: Reports: Hypertension Respiratory History: Reports: Asthma, COPD, Sleep Apnea Other Respiratory History: uses CPAP Gastrointestinal History: Reports: Gastritis Genitourinary History: Reports: None Musculoskeletal History: Reports: Arthritis, Gout Neurological History: Reports: None Psychiatric History: Reports: None Endocrine/Metabolic History: Reports: Obesity/BMI 30+, Other (See Below) Hematologic History: Reports: None Immunologic History: Reports: None Oncologic (Cancer) History: Reports: None Dermatologic History: Reports: None, Other (See Below) Other Dermatologic History: has rash on legs - Infectious Disease History Infectious Disease History: Reports: Chicken Pox - Past Surgical History Head Surgeries/Procedures: Reports: None HEENT Surgical History: Reports: Other (See Below) Other HEENT Surgeries/Procedures: "throat stretched" Cardiovascular Surgical History: Reports: None GI Surgical History: Reports: Appendectomy, Esophageal Dilatation, Hernia Repair /Other Male Surgical History: Reports: None Endocrine Surgical History: Reports: None Neurological Surgical History: Reports: None Musculoskeletal Surgical History: Reports: None Oncologic Surgical History: Reports: None Social & Family History - Family History Family Medical History: Noncontributory - Tobacco Use Smoking Status *Q: Never Smoker - Caffeine Use Caffeine Use: Reports: Coffee, Energy Drinks - Recreational Drug Use Recreational Drug Use: No Review of Systems - Review of Systems Review Of Systems: See Below Constitutional: Reports: No Symptoms Respiratory: Reports: No Symptoms Cardiovascular: Reports: No Symptoms GI/Abdominal: Reports: No Symptoms Musculoskeletal: Reports: Joint Pain, Joint Swelling Skin: Reports: No Symptoms. Denies: Erythema Neurological: Reports: No Symptoms Psychiatric: Reports: No Symptoms ED EXAM, GENERAL - Physical Exam Exam: See Below Exam Limited By: No Limitations General Appearance: Alert, No Apparent Distress Head: Atraumatic Neck: Normal Inspection Respiratory/Chest: No Respiratory Distress Extremities: Normal Inspection, Normal Range of Motion, Leg Pain. No: Pedal Edema, Joint Swelling, Aleksandar's Sign, Limited Range of Motion, Increased Warmth Neurological: Alert, Oriented Psychiatric: Normal Affect Skin Exam: Warm, Dry Course - Vital Signs Last Recorded V/S: Last Vital Signs Temp 36.6 C 09/30/19 11:18 Pulse 93 09/30/19 11:18 Resp 18 09/30/19 11:18 BP 171/102 H 09/30/19 11:18 Pulse Ox 97 09/30/19 11:18 Departure - Departure Time of Disposition: 11:48 Disposition: Home, Self-Care 01 Condition: Good Clinical Impression: Knee pain, left, Gout - Discharge Information Instructions: Knee Pain, Adult, Gout, [id number] Referrals: Randy Nguyen MD [Primary Care Provider] - Additional Instructions: Follow-up with orthopedic provider as soon as possible. Knee immobilizer as needed. Take your gout meds as prescribed. [place] if needed. Care Plan Goals: The following information is given to patients seen in the emergency department who are being discharged to home. This information is to outline your options for follow-up care. We provide all patients seen in our emergency department with a follow-up referral. The need for follow-up, as well as the timing and circumstances, are variable depending upon the specifics of your emergency department visit. If you don't have a primary care physician on staff, we will provide you with a referral. We always advise you to contact your personal physician following an emergency department visit to inform them of the circumstance of the visit and for follow-up with them and/or the need for any referrals to a consulting specialist. The emergency department will also refer you to a specialist when appropriate. This referral assures that you have the opportunity for follow-up care with a specialist. All of these measure are taken in an effort to provide you with optimal care, which includes your follow-up. Under all circumstances we always encourage you to contact your private physician who remains a resource for coordinating your care. When calling for follow-up care, please make the office aware that this follow-up is from your recent emergency room visit. If for any reason you are refused follow-up, please contact the [facility] Emergency Department at and asked to speak to the emergency department charge nurse. Sepsis Event Note - Evaluation Sepsis Screening Result: No Definite Risk - Focused Exam Vital Signs: Vital Signs Temp Pulse Resp BP Pulse Ox 09/30/19 11:18 36.6 C 93 18 171/102 H 97 Date Exam was Performed: 09/30/19 Time Exam was Performed: 11:26
== END 2019-09-30 12:02 | disposition home or self-care (01) ==
LOC: MW.ED 10:51
DX: M10.9 Gout, unspecified (principal); I10 Essential (primary) hypertension; Z88.0 Allergy status to penicillin; Z91.040 Latex allergy status; Z79.899 Other long term (current) drug therapy; Z88.6 Allergy status to analgesic agent
CPT/HCPCS: 99283

== ENCOUNTER 2019-12-02 09:10 | Inpatient (IN) | payer OTHER ==
[2019-12-02] MEDS ORDERED: Sodium Chloride 0.9% 10 ML Syringe FLUSH PRN (09:26)
[2019-12-02] MEDS ORDERED: Sodium Chloride 0.9% 2.5 ML Syringe FLUSH PRN (09:26)
[2019-12-02] MEDS ORDERED: Sodium Chloride 0.9% 1,000 ML IV ONE (09:51)
[2019-12-02] MEDS ORDERED: Levofloxacin/Dextrose 5%-Water 750 MG in Premix Bag 1 BAG IV ONE (09:53)
[2019-12-02 10:05] LABS: BLOOD UREA NITROGEN,BUN 11 mg/dL (7.0-18.0); CARBON DIOXIDE,CO2 25.2 mmol/L (21.0-32.0); CHLORIDE,CL 103 mmol/L (98-107); GLUCOSE RANDOM 104 mg/dL (74-106); POTASSIUM,K 4.1 mmol/L (3.5-5.1); SODIUM,NA 141 mmol/L (136-148)
--- NOTE | 2019-12-02 10:43 | CR ---
Right tibia and fibula: 2 views of the right tibia and fibula were obtained. Comparison: No previous right tibia or fibula exam is available. Spur is noted at the attachment of the Achilles tendon to the calcaneus. Mild soft tissue edema is felt to be present. No fracture or other bony abnormality is seen. No periosteal reaction is seen. No soft tissue air is seen. Impression: 1. Soft tissue edema. 2. Calcaneal spur. 3. Right tibia and fibula study is otherwise unremarkable. Diagnostic code #2 This report was dictated in [place] Standard Time
--- NOTE | 2019-12-02 11:33 | EDM.PDOC ---
ED HPI GENERAL MEDICAL PROBLEM - General Chief Complaint: Possible Sepsis Stated Complaint: SWELLING RT LEG Time Seen by Provider: 12/02/19 10:00 Source of Information: Reports: Patient History Limitations: Reports: No Limitations - History of Present Illness INITIAL COMMENTS - FREE TEXT/NARRATIVE: This 49 year old male is admitted to the ED with a chief complaint of swelling of his right lower leg for one week. He complains of pain and increased warmth of the left leg as well. He states that yesterday he had a temp of 103 degrees F. He states that he had a similar problem 10-12 years ago and was admitted for cellulitis and admitted to the hospital for IV antibiotics. He is here for further evaluation. Onset: Gradual (over one week.) Duration: Getting Worse Location: Reports: Lower Extremity, Right Severity: Moderate Right lower leg Pain Score (Numeric/FACES): 5 - Related Data Allergies Allergy/AdvReac Type Severity Reaction Status Date / Time aspirin Allergy Anaphylactic Verified 12/02/19 09:13 Shock latex Allergy Rash Verified 12/02/19 09:13 Penicillins Allergy Anaphylactic Verified 12/02/19 09:13 Shock Home Meds: Home Meds Allopurinol [Zyloprim] 300 mg PO DAILY 08/14/16 [History] Carvedilol [Coreg] 6.25 mg PO BID 09/30/19 [History] Furosemide 40 mg PO DAILY 09/30/19 [History] Indomethacin 25 mg PO TID PRN 09/30/19 [History] Lisinopril [Zestril] 10 mg PO DAILY 09/30/19 [History] Pantoprazole [ProTONIX] 40 mg PO ACBREAKFAST 09/30/19 [History] Sertraline [Zoloft] 50 mg PO DAILY 09/30/19 [History] atorvaSTATin [Lipitor] 20 mg PO DAILY 09/30/19 [History] EPINEPHrine [Epinephrine] 1 dose INJECT ASDIRECTED 12/02/19 [History] Past Medical History HEENT History: Reports: Allergic Rhinitis, Other (See Below) Other HEENT History: "overactive esophageal muscles" esophagoscopy with foreign body removal x3 Cardiovascular History: Reports: Hypertension Respiratory History: Reports: Asthma, COPD, Sleep Apnea Other Respiratory History: uses CPAP Gastrointestinal History: Reports: Gastritis Genitourinary History: Reports: None Musculoskeletal History: Reports: Arthritis, Gout Neurological History: Reports: None Psychiatric History: Reports: None Endocrine/Metabolic History: Reports: Obesity/BMI 30+, Other (See Below) Hematologic History: Reports: None Immunologic History: Reports: None Oncologic (Cancer) History: Reports: None Dermatologic History: Reports: None, Other (See Below) Other Dermatologic History: has rash on legs - Infectious Disease History Infectious Disease History: Reports: Chicken Pox, Measles - Past Surgical History Head Surgeries/Procedures: Reports: None HEENT Surgical History: Reports: Other (See Below) Other HEENT Surgeries/Procedures: "throat stretched" Cardiovascular Surgical History: Reports: None GI Surgical History: Reports: Appendectomy, Esophageal Dilatation, Hernia Repair /Other Male Surgical History: Reports: None Endocrine Surgical History: Reports: None Neurological Surgical History: Reports: None Musculoskeletal Surgical History: Reports: None Oncologic Surgical History: Reports: None Dermatological Surgical History: Reports: None Social & Family History - Family History Family Medical History: Noncontributory - Tobacco Use Smoking Status *Q: Never Smoker Second Hand Smoke Exposure: No - Caffeine Use Caffeine Use: Reports: Soda - Recreational Drug Use Recreational Drug Use: No ED ROS GENERAL - Review of Systems Review Of Systems: See Below Constitutional: Reports: Fever HEENT: Reports: No Symptoms Respiratory: Reports: No Symptoms Cardiovascular: Reports: No Symptoms Endocrine: Reports: No Symptoms GI/Abdominal: Reports: No Symptoms : Reports: No Symptoms Musculoskeletal: Reports: Other (pain and swelling of right lower extrem) Neurological: Reports: Tingling (in right leg and ankle) ED EXAM, GENERAL - Physical Exam Exam: See Below Exam Limited By: No Limitations General Appearance: Alert, WD/WN, No Apparent Distress Eye Exam: Bilateral Eye: Normal Inspection, PERRL Ears: Normal External Exam, Normal Canal, Hearing Grossly Normal, Normal TMs Ear Exam: Bilateral Ear: Auricle Normal, Canal Normal, TM normal Nose: Normal Inspection, Normal Mucosa, No Blood Throat/Mouth: Normal Inspection, Normal Lips, Normal Teeth, Normal Gums, Normal Oropharynx, Normal Voice, No Airway Compromise Head: Atraumatic, Normocephalic Neck: Normal Inspection, Supple, Non-Tender, Full Range of Motion Respiratory/Chest: No Respiratory Distress, Lungs Clear, Normal Breath Sounds, No Accessory Muscle Use, Chest Non-Tender Cardiovascular: Normal Peripheral Pulses, Regular Rate, Rhythm, No Edema, No Gallop, No JVD, No Murmur, No Rub Peripheral Pulses: 3+: Radial (L), Radial (R), Dorsalis Pedis (L), Dorsalis Pedis (R) GI/Abdominal: Normal Bowel Sounds, Soft, Non-Tender, No Organomegaly, Other ( Obesity) (Male) Exam: Deferred Rectal (Males) Exam: Deferred Back Exam: Normal Inspection, Full Range of Motion Extremities: Normal Range of Motion, Normal Capillary Refill, Leg Pain (right lower leg) Neurological: Alert, Oriented, CN II-XII Intact, Normal Cognition, Normal Gait, Normal Reflexes Skin Exam: Warm, Erythema (over right anterior lower leg), Increased Warmth ( right lower leg), Other (cellulitis noted right lower leg) Course - Vital Signs Text/Narrative:: I discussed this case with Dr. Cesar at 11:25AM. The patient will be admitted as an inpatient. The patient agrees with the admission plan. Last Recorded V/S: Last Vital Signs Temp 97.2 F 12/02/19 10:52 Pulse 94 12/02/19 10:52 Resp 18 12/02/19 10:52 BP 152/77 H 12/02/19 10:52 Pulse Ox 98 12/02/19 10:52 - Orders/Labs/Meds Orders: Active Orders 24 hr Category Date Time Status CULTURE BLOOD [BC] Stat Lab 12/02/19 09:20 Received CULTURE BLOOD [BC] Stat Lab 12/02/19 09:37 Received UA RFX ANGY AND CULT IF INDIC [URIN] Stat Lab 12/02/19 09:26 Ordered Sodium Chloride 0.9% [Saline Flush] Med 12/02/19 09:26 Active 10 ml FLUSH ASDIRECTED PRN Sodium Chloride 0.9% [Saline Flush] Med 12/02/19 09:26 Active 2.5 ml FLUSH ASDIRECTED PRN Blood Culture x2 Reflex Set [OM.PC] Stat Oth 12/02/19 09:26 Ordered Saline Lock Insert [OM.PC] Stat Oth 12/02/19 09:26 Ordered Medication Orders Sodium Chloride (Saline Flush) 10 ml FLUSH ASDIRECTED PRN PRN Reason: Keep Vein Open Last Admin: 12/02/19 10:09 Dose: 10 ml Sodium Chloride (Saline Flush) 2.5 ml FLUSH ASDIRECTED PRN PRN Reason: Keep Vein Open Last Admin: 12/02/19 10:09 Dose: 2.5 ml Labs: Laboratory Tests 12/02/19 12/02/19 12/02/19 Range/Units 09:20 09:20 09:20 WBC 7.53 (4.0-11.0) K/uL RBC 4.14 L (4.50-5.90) M/uL Hgb 13.5 (13.0-17.0) g/dL Hct 40.8 (38.0-50.0) % MCV 98.6 H (80.0-98.0) fL MCH 32.6 H (27.0-32.0) pg MCHC 33.1 (31.0-37.0) g/dL RDW Std Deviation 46.7 (28.0-62.0) fl RDW Coeff of Ileana 13 (11.0-15.0) % Plt Count 350 (150-400) K/uL MPV 9.20 (7.40-12.00) fL Add Manual Diff YES Neutrophils % (Manual) 47 L (48.0-80.0) % Band Neutrophils % 7 % Lymphocytes % (Manual) 32 (16.0-40.0) % Monocytes % (Manual) 4 (0.0-15.0) % Eosinophils % (Manual) 7 (0.0-7.0) % Basophils % (Manual) 1 (0.0-1.5) % Metamyelocytes % 2 % Nucleated RBC % 0.0 /100WBC Absolute Seg Neuts 3.5 (1.4-5.7) Band Neutrophils # 0.5 Lymphocytes # (Manual) 2.4 (0.6-2.4) Monocytes # (Manual) 0.3 (0.0-0.8) Eosinophils # (Manual) 0.5 (0.0-0.7) Basophils # (Manual) 0.1 (0.0-0.1) Absolute Metamyelocyte 0.2 Nucleated RBCs # 0 K/uL Lactate 1.1 (0.20-2.00) mmol/L Sodium 141 (136-148) mmol/L Potassium 4.1 (3.5-5.1) mmol/L Chloride 103 (98-107) mmol/L Carbon Dioxide 25.2 (21.0-32.0) mmol/L BUN 11 (7.0-18.0) mg/dL Creatinine 0.9 (0.8-1.3) mg/dL Est Cr Clr Drug Dosing 101.47 mL/min Estimated GFR (MDRD) > 60.0 ml/min Glucose 104 (74-106) mg/dL Calcium 9.0 (8.5-10.1) mg/dL Magnesium 1.9 (1.8-2.4) mg/dL Total Bilirubin 0.4 (0.2-1.0) mg/dL AST 37 (15-37) IU/L ALT 107 H (14-63) IU/L Alkaline Phosphatase 97 (46-116) U/L B-Natriuretic Peptide (<100) PG/ML Total Protein 7.8 (6.4-8.2) g/dL Albumin 3.7 (3.4-5.0) g/dL Globulin 4.1 H (2.6-4.0) g/dL Albumin/Globulin Ratio 0.9 (0.9-1.6) Slides for Path Review 12/02/19 Range/Units 09:20 WBC (4.0-11.0) K/uL RBC (4.50-5.90) M/uL Hgb (13.0-17.0) g/dL Hct (38.0-50.0) % MCV (80.0-98.0) fL MCH (27.0-32.0) pg MCHC (31.0-37.0) g/dL RDW Std Deviation (28.0-62.0) fl RDW Coeff of Ileana (11.0-15.0) % Plt Count (150-400) K/uL MPV (7.40-12.00) fL Add Manual Diff Neutrophils % (Manual) (48.0-80.0) % Band Neutrophils % % Lymphocytes % (Manual) (16.0-40.0) % Monocytes % (Manual) (0.0-15.0) % Eosinophils % (Manual) (0.0-7.0) % Basophils % (Manual) (0.0-1.5) % Metamyelocytes % % Nucleated RBC % /100WBC Absolute Seg Neuts (1.4-5.7) Band Neutrophils # Lymphocytes # (Manual) (0.6-2.4) Monocytes # (Manual) (0.0-0.8) Eosinophils # (Manual) (0.0-0.7) Basophils # (Manual) (0.0-0.1) Absolute Metamyelocyte Nucleated RBCs # K/uL Lactate (0.20-2.00) mmol/L Sodium (136-148) mmol/L Potassium (3.5-5.1) mmol/L Chloride (98-107) mmol/L Carbon Dioxide (21.0-32.0) mmol/L BUN (7.0-18.0) mg/dL Creatinine (0.8-1.3) mg/dL Est Cr Clr Drug Dosing mL/min Estimated GFR (MDRD) ml/min Glucose (74-106) mg/dL Calcium (8.5-10.1) mg/dL Magnesium (1.8-2.4) mg/dL Total Bilirubin (0.2-1.0) mg/dL AST (15-37) IU/L ALT (14-63) IU/L Alkaline Phosphatase (46-116) U/L B-Natriuretic Peptide 11 (<100) PG/ML Total Protein (6.4-8.2) g/dL Albumin (3.4-5.0) g/dL Globulin (2.6-4.0) g/dL Albumin/Globulin Ratio (0.9-1.6) Slides for Path Review Meds: Medications Generic Name Dose Route Start Last Admin Trade Name Freq PRN Reason Stop Dose Admin Sodium Chloride 10 ml 12/02/19 09:26 12/02/19 10:09 Saline Flush FLUSH 10 ml ASDIRECTED PRN Administration Keep Vein Open Sodium Chloride 2.5 ml 12/02/19 09:26 12/02/19 10:09 Saline Flush FLUSH 2.5 ml ASDIRECTED PRN Administration Keep Vein Open Discontinued Medications Generic Name Dose Route Start Last Admin Trade Name Freq PRN Reason Stop Dose Admin Sodium Chloride 1,000 mls @ 1,000 mls/hr 12/02/19 09:51 12/02/19 10:09 Normal Saline IV 12/02/19 10:50 1,000 mls/hr .Bolus ONE Administration Vancomycin HCl 1 gm/ Sodium 250 mls @ 166 mls/hr 12/02/19 09:51 12/02/19 10: 09 Chloride IV 12/02/19 11:21 166 mls/hr ONETIME ONE Administration Levofloxacin/Dextrose 750 mg/ 150 mls @ 100 mls/hr 12/02/19 09:53 Premix IV 12/02/19 11:22 ONETIME ONE Departure - Departure Time of Disposition: 11:40 Disposition: Admitted As Inpatient 68 Condition: Good Clinical Impression: Cellulitis of leg, right - Discharge Information *PRESCRIPTION DRUG MONITORING PROGRAM REVIEWED*: Yes *COPY OF PRESCRIPTION DRUG MONITORING REPORT IN PATIENT TAMMI: Yes Referrals: Randy Nguyen MD [Primary Care Provider] - Forms: ED Department Discharge Sepsis Event Note - Evaluation Sepsis Screening Result: Possible Sepsis Risk - Focused Exam Vital Signs: Vital Signs Temp Pulse Resp BP Pulse Ox 12/02/19 10:52 97.2 F 94 18 152/77 H 98 12/02/19 09:50 97.4 F 75 16 151/76 H 97 12/02/19 09:27 140/88 12/02/19 09:14 96.9 F 95 18 174/94 H 95 Date Exam was Performed: 12/02/19 Time Exam was Performed: 11:33 - My Orders Last 24 Hours: My Active Orders 12/02/19 09:20 CULTURE BLOOD [BC] Stat 12/02/19 09:26 UA RFX ANGY AND CULT IF INDIC [URIN] Stat Sodium Chloride 0.9% [Saline Flush] 10 ml FLUSH ASDIRECTED PRN Sodium Chloride 0.9% [Saline Flush] 2.5 ml FLUSH ASDIRECTED PRN Blood Culture x2 Reflex Set [OM.PC] Stat Saline Lock Insert [OM.PC] Stat 12/02/19 09:37 CULTURE BLOOD [BC] Stat - Assessment/Plan Last 24 Hours: My Active Orders 12/02/19 09:20 CULTURE BLOOD [BC] Stat 12/02/19 09:26 UA RFX ANGY AND CULT IF INDIC [URIN] Stat Sodium Chloride 0.9% [Saline Flush] 10 ml FLUSH ASDIRECTED PRN Sodium Chloride 0.9% [Saline Flush] 2.5 ml FLUSH ASDIRECTED PRN Blood Culture x2 Reflex Set [OM.PC] Stat Saline Lock Insert [OM.PC] Stat 12/02/19 09:37 CULTURE BLOOD [BC] Stat
--- NOTE | 2019-12-02 12:20 | PCM.HP.2 ---
H&P History of Present Illness - General Date of Service: 12/02/19 Admit Problem/Dx: Admission Diagnosis/Problem Admission Diagnosis/Problem Cellulitis of right lower leg Source of Information: Patient History Limitations: Reports: No Limitations - History of Present Illness Initial Comments - Free Text/Narative: This 49 year old male with pmh of HTN, recurrent cellulitis to R leg, obesity and YOSSI with CPAP presented to the ED with complaints of fevers and pain to R lower leg along with swelling and redness. he reports the redness and pain started over the weekend and has progressively worsened. He reports he has had temps as high as 103 at home, soaking his sheets and feeling very hot. He reports his R lower leg was very red and warm, coloring was purplish as well, which has improved. He came in today because leg is more swollen and skin is cracking now. Denies knee joint pain with movment and no increased pain with ankle movement on R side. He denies recent trauma or injury to this leg. he reports he get cellulitis to this leg frequently, he has initially event a few years ago, after what they thought was a spider bite which progressed to significant cellulitis. He reports fevers, chills, no chest pain or SOB. No abdominal pain, reports intermittent loose stools, but no overt diarrhea. In the ED no leukocytosis noted, bandemia noted at 7, lactic acid 1.1, BMP WNL. Xray of tib/fib revealed no osseous concerns, soft tissue edema. VS stable. BC obtained. Levaquin and Vancomycin given in ED. He will be admitted for cellulitis. Right lower leg Pain Score (Numeric/FACES): 5 - Related Data Allergies/Adverse Reactions: Allergies Allergy/AdvReac Type Severity Reaction Status Date / Time aspirin Allergy Anaphylactic Verified 12/02/19 09:13 Shock latex Allergy Rash Verified 12/02/19 09:13 Penicillins Allergy Anaphylactic Verified 12/02/19 09:13 Shock Home Medications: Home Meds Allopurinol [Zyloprim] 300 mg PO DAILY 08/14/16 [History] Carvedilol [Coreg] 6.25 mg PO BID 09/30/19 [History] Furosemide 40 mg PO DAILY 09/30/19 [History] Indomethacin 25 mg PO TID PRN 09/30/19 [History] Lisinopril [Zestril] 10 mg PO DAILY 09/30/19 [History] Pantoprazole [ProTONIX] 40 mg PO ACBREAKFAST 09/30/19 [History] Sertraline [Zoloft] 50 mg PO DAILY 09/30/19 [History] atorvaSTATin [Lipitor] 20 mg PO DAILY 09/30/19 [History] EPINEPHrine [Epinephrine] 1 dose INJECT ASDIRECTED 12/02/19 [History] Past Medical History HEENT History: Reports: Allergic Rhinitis, Other (See Below) Other HEENT History: "overactive esophageal muscles" esophagoscopy with foreign body removal x3 Cardiovascular History: Reports: Hypertension. Denies: Afib, Blood Clots/VTE/ DVT, CAD, High Cholesterol Respiratory History: Reports: Asthma, COPD, Sleep Apnea Other Respiratory History: uses CPAP Gastrointestinal History: Reports: Gastritis, Other (See Below) (esophageal strictures) Genitourinary History: Reports: None Musculoskeletal History: Reports: Arthritis, Gout Neurological History: Reports: None. Denies: CVA, TIA Psychiatric History: Reports: None Endocrine/Metabolic History: Reports: Obesity/BMI 30+ Hematologic History: Reports: None Immunologic History: Reports: None Oncologic (Cancer) History: Reports: None Dermatologic History: Reports: None, Other (See Below) Other Dermatologic History: has rash on legs - Infectious Disease History Infectious Disease History: Reports: Chicken Pox, Measles - Past Surgical History Head Surgeries/Procedures: Reports: None HEENT Surgical History: Reports: Other (See Below) Other HEENT Surgeries/Procedures: "throat stretched" Cardiovascular Surgical History: Reports: None GI Surgical History: Reports: Appendectomy, Esophageal Dilatation, Hernia Repair /Other Male Surgical History: Reports: None Endocrine Surgical History: Reports: None Neurological Surgical History: Reports: None Musculoskeletal Surgical History: Reports: None Oncologic Surgical History: Reports: None Dermatological Surgical History: Reports: None Social & Family History - Family History Family Medical History: Noncontributory - Tobacco Use Smoking Status *Q: Never Smoker Second Hand Smoke Exposure: No - Caffeine Use Caffeine Use: Reports: Soda - Alcohol Use Alcohol Use Frequency: Rarely, Socially - Recreational Drug Use Recreational Drug Use: No - Living Situation & Occupation Living situation: Reports: Occupation: Employed H&P Review of Systems - Review of Systems: Review Of Systems: See Below General: Reports: Fever, Chills HEENT: Denies: Headaches, Sinus Congestion Pulmonary: Denies: Shortness of Breath, Cough, Sputum Cardiovascular: Reports: Edema (swelling to R leg). Denies: Chest Pain, Lightheadedness, Syncope Gastrointestinal: Reports: Diarrhea (some loose stools at home). Denies: Abdominal Pain, Decreased Appetite, Distension, Nausea, Vomiting Genitourinary: Reports: No Symptoms. Denies: Dysuria, Frequency, Burning Musculoskeletal: Reports: No Symptoms. Denies: Neck Pain, Muscle Stiffness Skin: Reports: Erythema, Wound Psychiatric: Reports: No Symptoms Neurological: Reports: No Symptoms Hematologic/Lymphatic: Reports: No Symptoms Immunologic: Reports: No Symptoms Exam - Exam Exam: See Below - Vital Signs Vital Signs: Last Vital Signs Temp 96.4 F L 12/02/19 11:30 Pulse 89 12/02/19 11:30 Resp 18 12/02/19 11:30 BP 156/65 H 12/02/19 11:30 Pulse Ox 98 12/02/19 11:30 Weight: 151.4 kg - Exam General: Alert, Oriented Neck: Supple, Trachea Midline Lungs: Clear to Auscultation, Normal Respiratory Effort Cardiovascular: Regular Rate, Regular Rhythm GI/Abdominal Exam: Normal Bowel Sounds, Soft, Non-Tender Back Exam: Normal Inspection, Full Range of Motion Extremities: Normal Inspection, Normal Range of Motion, Non-Tender, Pedal Edema (+1 non pitting to R leg). No: Limited Range of Motion Skin: Dry, Other (Erythema noted to R lateral lower leg, with dry crackng skin, extends to just above ankle and just below knee. Does not involve joints. Swelling +1 non pitting, issa to papations and increased warmth to reddened area. Does not extend to posterior. ) Neuro Extensive - Mental Status: Alert, Oriented x3 Neuro Extensive - Motor, Sensory, Reflexes: CN II-XII Intact Psychiatric: Alert, Normal Affect, Normal Mood - Patient Data Lab Results Last 24 hrs: Laboratory Results - last 24 hr 12/02/19 12/02/19 12/02/19 Range/Units 09:20 09:20 09:20 WBC 7.53 (4.0-11.0) K/uL RBC 4.14 L (4.50-5.90) M/uL Hgb 13.5 (13.0-17.0) g/dL Hct 40.8 (38.0-50.0) % MCV 98.6 H (80.0-98.0) fL MCH 32.6 H (27.0-32.0) pg MCHC 33.1 (31.0-37.0) g/dL RDW Std Deviation 46.7 (28.0-62.0) fl RDW Coeff of Ileana 13 (11.0-15.0) % Plt Count 350 (150-400) K/uL MPV 9.20 (7.40-12.00) fL Add Manual Diff YES Neutrophils % (Manual) 47 L (48.0-80.0) % Band Neutrophils % 7 % Lymphocytes % (Manual) 32 (16.0-40.0) % Monocytes % (Manual) 4 (0.0-15.0) % Eosinophils % (Manual) 7 (0.0-7.0) % Basophils % (Manual) 1 (0.0-1.5) % Metamyelocytes % 2 % Nucleated RBC % 0.0 /100WBC Absolute Seg Neuts 3.5 (1.4-5.7) Band Neutrophils # 0.5 Lymphocytes # (Manual) 2.4 (0.6-2.4) Monocytes # (Manual) 0.3 (0.0-0.8) Eosinophils # (Manual) 0.5 (0.0-0.7) Basophils # (Manual) 0.1 (0.0-0.1) Absolute Metamyelocyte 0.2 Nucleated RBCs # 0 K/uL Lactate 1.1 (0.20-2.00) mmol/L Sodium 141 (136-148) mmol/L Potassium 4.1 (3.5-5.1) mmol/L Chloride 103 (98-107) mmol/L Carbon Dioxide 25.2 (21.0-32.0) mmol/L BUN 11 (7.0-18.0) mg/dL Creatinine 0.9 (0.8-1.3) mg/dL Est Cr Clr Drug Dosing 101.47 mL/min Estimated GFR (MDRD) > 60.0 ml/min Glucose 104 (74-106) mg/dL Calcium 9.0 (8.5-10.1) mg/dL Magnesium 1.9 (1.8-2.4) mg/dL Total Bilirubin 0.4 (0.2-1.0) mg/dL AST 37 (15-37) IU/L ALT 107 H (14-63) IU/L Alkaline Phosphatase 97 (46-116) U/L B-Natriuretic Peptide (<100) PG/ML Total Protein 7.8 (6.4-8.2) g/dL Albumin 3.7 (3.4-5.0) g/dL Globulin 4.1 H (2.6-4.0) g/dL Albumin/Globulin Ratio 0.9 (0.9-1.6) Urine Color Urine Appearance Urine pH (5.0-8.0) Ur Specific [place] (1.001-1.035) Urine Protein (NEGATIVE) mg/dL Urine Glucose (UA) (NEGATIVE) mg/dL Urine Ketones (NEGATIVE) mg/dL Urine Occult Blood (NEGATIVE) Urine Nitrite (NEGATIVE) Urine Bilirubin (NEGATIVE) Urine Urobilinogen (<2.0) EU/dL Ur Leukocyte Esterase (NEGATIVE) Slides for Path Review 12/02/19 12/02/19 Range/Units 09:20 11:30 WBC (4.0-11.0) K/uL RBC (4.50-5.90) M/uL Hgb (13.0-17.0) g/dL Hct (38.0-50.0) % MCV (80.0-98.0) fL MCH (27.0-32.0) pg MCHC (31.0-37.0) g/dL RDW Std Deviation (28.0-62.0) fl RDW Coeff of [place]ana (11.0-15.0) % Plt Count (150-400) K/uL MPV (7.40-12.00) fL Add Manual Diff Neutrophils % (Manual) (48.0-80.0) % Band Neutrophils % % Lymphocytes % (Manual) (16.0-40.0) % Monocytes % (Manual) (0.0-15.0) % Eosinophils % (Manual) (0.0-7.0) % Basophils % (Manual) (0.0-1.5) % Metamyelocytes % % Nucleated RBC % /100WBC Absolute Seg Neuts (1.4-5.7) Band Neutrophils # Lymphocytes # (Manual) (0.6-2.4) Monocytes # (Manual) (0.0-0.8) Eosinophils # (Manual) (0.0-0.7) Basophils # (Manual) (0.0-0.1) Absolute Metamyelocyte Nucleated RBCs # K/uL Lactate (0.20-2.00) mmol/L Sodium (136-148) mmol/L Potassium (3.5-5.1) mmol/L Chloride (98-107) mmol/L Carbon Dioxide (21.0-32.0) mmol/L BUN (7.0-18.0) mg/dL Creatinine (0.8-1.3) mg/dL Est Cr Clr Drug Dosing mL/min Estimated GFR (MDRD) ml/min Glucose (74-106) mg/dL Calcium (8.5-10.1) mg/dL Magnesium (1.8-2.4) mg/dL Total Bilirubin (0.2-1.0) mg/dL AST (15-37) IU/L ALT (14-63) IU/L Alkaline Phosphatase (46-116) U/L B-Natriuretic Peptide 11 (<100) PG/ML Total Protein (6.4-8.2) g/dL Albumin (3.4-5.0) g/dL Globulin (2.6-4.0) g/dL Albumin/Globulin Ratio (0.9-1.6) Urine Color YELLOW Urine Appearance CLEAR Urine pH 6.0 (5.0-8.0) Ur Specific [place] 1.015 (1.001-1.035) Urine Protein NEGATIVE (NEGATIVE) mg/dL Urine Glucose (UA) NEGATIVE (NEGATIVE) mg/dL Urine Ketones NEGATIVE (NEGATIVE) mg/dL Urine Occult Blood NEGATIVE (NEGATIVE) Urine Nitrite NEGATIVE (NEGATIVE) Urine Bilirubin NEGATIVE (NEGATIVE) Urine Urobilinogen 0.2 (<2.0) EU/dL Ur Leukocyte Esterase NEGATIVE (NEGATIVE) Slides for Path Review Result Diagrams: 12/02/19 09:20 12/02/19 09:20 Sepsis Event Note - Evaluation Sepsis Screening Result: Possible Sepsis Risk - Focused Exam Vital Signs: Vital Signs Temp Pulse Resp BP Pulse Ox 12/02/19 11:30 96.4 F L 89 18 156/65 H 98 12/02/19 11:11 152/74 H 12/02/19 10:52 97.2 F 94 18 152/77 H 98 12/02/19 10:38 152/77 H 12/02/19 09:50 97.4 F 75 16 151/76 H 97 12/02/19 09:27 140/88 12/02/19 09:14 96.9 F 95 18 174/94 H 95 Date Exam was Performed: 12/02/19 Time Exam was Performed: 12:14 - Problem List (1) Cellulitis of leg, right SNOMED Code(s): 973763002 ICD Code: L03.115 - CELLULITIS OF RIGHT LOWER LIMB Status: Acute Current Visit: Yes (2) Sleep apnea SNOMED Code(s): 22440687 ICD Code: G47.30 - SLEEP APNEA, UNSPECIFIED Status: Chronic Current Visit : No (3) Obesity SNOMED Code(s): 304038340 ICD Code: E66.9 - OBESITY, UNSPECIFIED Status: Chronic Current Visit: No (4) Gout SNOMED Code(s): 48882212 ICD Code: M10.9 - GOUT, UNSPECIFIED Status: Chronic Current Visit: No (5) HTN (hypertension) SNOMED Code(s): 17295047 ICD Code: I10 - ESSENTIAL (PRIMARY) HYPERTENSION Status: Chronic Current Visit: Yes Qualifiers: Hypertension type: essential hypertension Qualified Code(s): I10 - Essential (primary) hypertension (6) Asthma SNOMED Code(s): 742854323 ICD Code: J45.909 - UNSPECIFIED ASTHMA, UNCOMPLICATED Status: Chronic Current Visit: Yes Qualifiers: Asthma severity: mild Asthma persistence: intermittent Asthma complication type: uncomplicated Qualified Code(s): J45.20 - Mild intermittent asthma, uncomplicated Problem List Initiated/Reviewed/Updated: Yes Orders Last 24hrs: Active Orders 24 hr Category Date Time Status Admission Status [Patient Status] [ADT] Stat ADT 12/02/19 11:42 Active Regular Diet [DIET] Diet 12/02/19 Lunch Ordered Venous Doppler Lwr Ext Rt [US] Urgent Exams 12/02/19 12:13 Ordered CULTURE BLOOD [BC] Stat Lab 12/02/19 09:20 Received CULTURE BLOOD [BC] Stat Lab 12/02/19 09:37 Received Sodium Chloride 0.9% [Saline Flush] Med 12/02/19 09:26 Active 10 ml FLUSH ASDIRECTED PRN Sodium Chloride 0.9% [Saline Flush] Med 12/02/19 09:26 Active 2.5 ml FLUSH ASDIRECTED PRN Blood Culture x2 Reflex Set [OM.PC] Stat Ot 12/02/19 09:26 Ordered Saline Lock Insert [OM.PC] Stat Ot 12/02/19 09:26 Ordered Medication Orders Sodium Chloride (Saline Flush) 10 ml FLUSH ASDIRECTED PRN PRN Reason: Keep Vein Open Last Admin: 12/02/19 10:09 Dose: 10 ml Sodium Chloride (Saline Flush) 2.5 ml FLUSH ASDIRECTED PRN PRN Reason: Keep Vein Open Last Admin: 12/02/19 10:09 Dose: 2.5 ml Assessment/Plan Comment:: This 49 year old male admitted with r lower leg cellulitis 1. R lower leg cellulitis - BC pending - Continue Vancomycin and Levaquin - Gentle IVF overnight, so sepsis suspected. - Elevate R leg as much as possible - Obtain venous doppler to rule out DVT 2. HTN: stable - Continue home medications 3. YOSSI with CPAP: Stable - is bringing CPAP 4. Asthma: stable - Rescue inhaler PRN Diet: Regular VTE prophylaxis: Lovenox CODE Status: Full Code Disposition: 2-3 days pending improvement - Mortality Measure Prognosis:: Good
[2019-12-02] MEDS ORDERED: Ondansetron 4 MG/2 ML SDV IVPUSH PRN (12:48)
[2019-12-02] MEDS ORDERED: Morphine 4 MG/ML Syringe IVPUSH PRN (12:48)
--- NOTE | 2019-12-02 13:29 | US ---
Right lower extremity deep venous ultrasound: Duplex and color Doppler evaluation was obtained of the right common femoral, superficial femoral, popliteal, peroneal and posterior tibial veins. Technologist's note: Distal superficial femoral vein and peroneal vein not well seen due to patient leg size. Normal Doppler blood flow and compression is seen. Impression: 1. No definite findings of right lower extremity deep venous thrombosis. Diagnostic code #1 This report was dictated in [place] Standard Time
[2019-12-02] MEDS: Enoxaparin 40 MG/0.4 ML Syringe SUBCUT SCH (13:45)
[2019-12-02] MEDS: Sodium Chloride 0.9% 1,000 ML IV SCH ×2 (13:46→22:52)
[2019-12-02] MEDS: Acetaminophen/HYDROcodone 325-5 MG Tab PO PRN ×2 (16:10→21:11)
[2019-12-02] MEDS: Carvedilol 3.125 MG Tab PO SCH (20:57)
[2019-12-02] MEDS ORDERED: diphenhydrAMINE 25 MG Cap PO PRN (21:13)
[2019-12-03] MEDS: Acetaminophen/HYDROcodone 325-5 MG Tab PO PRN (05:52)
[2019-12-03 06:03] LABS: BLOOD UREA NITROGEN,BUN 16 mg/dL (7.0-18.0); CARBON DIOXIDE,CO2 27.3 mmol/L (21.0-32.0); CHLORIDE,CL 107 mmol/L (98-107); GLUCOSE RANDOM 104 mg/dL (74-106); POTASSIUM,K 4.4 mmol/L (3.5-5.1); SODIUM,NA 142 mmol/L (136-148)
[2019-12-03] MEDS: Pantoprazole 40 MG Tab.CR PO SCH (07:58)
[2019-12-03] MEDS: Allopurinol 300 MG Tab PO SCH (08:02)
[2019-12-03] MEDS: Carvedilol 3.125 MG Tab PO SCH ×2 (08:02→20:00)
[2019-12-03] MEDS: Sertraline 50 MG Tab PO SCH (08:03)
[2019-12-03] MEDS: Furosemide 40 MG Tab PO SCH (08:03)
[2019-12-03] MEDS: atorvaSTATin 20 MG Tab PO SCH (08:03)
[2019-12-03] MEDS: Lisinopril 10 MG Tab PO SCH (08:04)
[2019-12-03] MEDS: Levofloxacin/Dextrose 5%-Water 750 MG in Premix Bag 1 BAG IV SCH (08:05)
--- NOTE | 2019-12-03 09:22 | PCM.PN ---
- General Info Date of Service: 12/03/19 Admission Dx/Problem (Free Text): Admission Diagnosis/Problem Admission Diagnosis/Problem Cellulitis of right lower leg Subjective Update: Feeling improved today, leg still hurting, but swelling and redness improved. No chest pain or SOB. No fevers overnight Functional Status: Reports: Pain Controlled, Tolerating Diet, Ambulating, Urinating - Review of Systems General: Reports: No Symptoms. Denies: Fever, Weakness HEENT: Reports: No Symptoms Pulmonary: Reports: No Symptoms. Denies: Shortness of Breath Cardiovascular: Reports: No Symptoms. Denies: Chest Pain Gastrointestinal: Reports: No Symptoms. Denies: Abdominal Pain, Nausea, Vomiting Genitourinary: Reports: No Symptoms. Denies: Dysuria, Frequency Musculoskeletal: Reports: Leg Pain (R lower leg) Skin: Reports: No Symptoms Neurological: Reports: No Symptoms Psychiatric: Reports: No Symptoms - Patient Data Vitals - Most Recent: Last Vital Signs Temp 97.4 F 12/03/19 07:59 Pulse 81 12/03/19 08:02 Resp 16 12/03/19 07:59 BP 187/91 H 12/03/19 08:04 Pulse Ox 98 12/03/19 07:59 Weight - Most Recent: 150 kg I&O - Last 24 Hours: Intake & Output 12/02/19 12/03/19 12/03/19 22:59 06:59 14:59 Intake Total 850 1877 240 Output Total 650 Balance 850 1227 240 Lab Results Last 24 Hours: Laboratory Results - last 24 hr 12/02/19 12/02/19 12/02/19 Range/Units 09:20 09:20 09:20 WBC 7.53 (4.0-11.0) K/uL RBC 4.14 L (4.50-5.90) M/uL Hgb 13.5 (13.0-17.0) g/dL Hct 40.8 (38.0-50.0) % MCV 98.6 H (80.0-98.0) fL MCH 32.6 H (27.0-32.0) pg MCHC 33.1 (31.0-37.0) g/dL RDW Std Deviation 46.7 (28.0-62.0) fl RDW Coeff of Ileana 13 (11.0-15.0) % Plt Count 350 (150-400) K/uL MPV 9.20 (7.40-12.00) fL Add Manual Diff YES Neutrophils % (Manual) 47 L (48.0-80.0) % Band Neutrophils % 7 % Lymphocytes % (Manual) 32 (16.0-40.0) % Monocytes % (Manual) 4 (0.0-15.0) % Eosinophils % (Manual) 7 (0.0-7.0) % Basophils % (Manual) 1 (0.0-1.5) % Metamyelocytes % 2 % Myelocytes % % Nucleated RBC % 0.0 /100WBC Absolute Seg Neuts 3.5 (1.4-5.7) Band Neutrophils # 0.5 Lymphocytes # (Manual) 2.4 (0.6-2.4) Monocytes # (Manual) 0.3 (0.0-0.8) Eosinophils # (Manual) 0.5 (0.0-0.7) Basophils # (Manual) 0.1 (0.0-0.1) Absolute Metamyelocyte 0.2 Absolute Myelocytes Nucleated RBCs # 0 K/uL Lactate 1.1 (0.20-2.00) mmol/L Sodium 141 (136-148) mmol/L Potassium 4.1 (3.5-5.1) mmol/L Chloride 103 (98-107) mmol/L Carbon Dioxide 25.2 (21.0-32.0) mmol/L BUN 11 (7.0-18.0) mg/dL Creatinine 0.9 (0.8-1.3) mg/dL Est Cr Clr Drug Dosing 101.47 mL/min Estimated GFR (MDRD) > 60.0 ml/min Glucose 104 (74-106) mg/dL Calcium 9.0 (8.5-10.1) mg/dL Magnesium 1.9 (1.8-2.4) mg/dL Total Bilirubin 0.4 (0.2-1.0) mg/dL AST 37 (15-37) IU/L ALT 107 H (14-63) IU/L Alkaline Phosphatase 97 (46-116) U/L B-Natriuretic Peptide (<100) PG/ML Total Protein 7.8 (6.4-8.2) g/dL Albumin 3.7 (3.4-5.0) g/dL Globulin 4.1 H (2.6-4.0) g/dL Albumin/Globulin Ratio 0.9 (0.9-1.6) Urine Color Urine Appearance Urine pH (5.0-8.0) Ur Specific [place] (1.001-1.035) Urine Protein (NEGATIVE) mg/dL Urine Glucose (UA) (NEGATIVE) mg/dL Urine Ketones (NEGATIVE) mg/dL Urine Occult Blood (NEGATIVE) Urine Nitrite (NEGATIVE) Urine Bilirubin (NEGATIVE) Urine Urobilinogen (<2.0) EU/dL Ur Leukocyte Esterase (NEGATIVE) Slides for Path Review 12/02/19 12/02/19 12/03/19 Range/Units 09:20 11:30 05:33 WBC 7.92 (4.0-11.0) K/uL RBC 3.80 L (4.50-5.90) M/uL Hgb 12.0 L (13.0-17.0) g/dL Hct 38.4 (38.0-50.0) % MCV 101.1 H (80.0-98.0) fL MCH 31.6 (27.0-32.0) pg MCHC 31.3 (31.0-37.0) g/dL RDW Std Deviation 48.6 (28.0-62.0) fl RDW Coeff of [place]le[place] 13 (11.0-15.0) % Plt Count 318 (150-400) K/uL MPV 9.30 (7.40-12.00) fL Add Manual Diff YES Neutrophils % (Manual) 50 (48.0-80.0) % Band Neutrophils % 8 % Lymphocytes % (Manual) 29 (16.0-40.0) % Monocytes % (Manual) 6 (0.0-15.0) % Eosinophils % (Manual) 5 (0.0-7.0) % Basophils % (Manual) 1 (0.0-1.5) % Metamyelocytes % % Myelocytes % 1 % Nucleated RBC % 0.0 /100WBC Absolute Seg Neuts 4.0 (1.4-5.7) Band Neutrophils # 0.6 Lymphocytes # (Manual) 2.3 (0.6-2.4) Monocytes # (Manual) 0.5 (0.0-0.8) Eosinophils # (Manual) 0.4 (0.0-0.7) Basophils # (Manual) 0.1 (0.0-0.1) Absolute Metamyelocyte Absolute Myelocytes 0.1 Nucleated RBCs # 0 K/uL Lactate (0.20-2.00) mmol/L Sodium (136-148) mmol/L Potassium (3.5-5.1) mmol/L Chloride (98-107) mmol/L Carbon Dioxide (21.0-32.0) mmol/L BUN (7.0-18.0) mg/dL Creatinine (0.8-1.3) mg/dL Est Cr Clr Drug Dosing mL/min Estimated GFR (MDRD) ml/min Glucose (74-106) mg/dL Calcium (8.5-10.1) mg/dL Magnesium (1.8-2.4) mg/dL Total Bilirubin (0.2-1.0) mg/dL AST (15-37) IU/L ALT (14-63) IU/L Alkaline Phosphatase (46-116) U/L B-Natriuretic Peptide 11 (<100) PG/ML Total Protein (6.4-8.2) g/dL Albumin (3.4-5.0) g/dL Globulin (2.6-4.0) g/dL Albumin/Globulin Ratio (0.9-1.6) Urine Color YELLOW Urine Appearance CLEAR Urine pH 6.0 (5.0-8.0) Ur Specific [place] 1.015 (1.001-1.035) Urine Protein NEGATIVE (NEGATIVE) mg/dL Urine Glucose (UA) NEGATIVE (NEGATIVE) mg/dL Urine Ketones NEGATIVE (NEGATIVE) mg/dL Urine Occult Blood NEGATIVE (NEGATIVE) Urine Nitrite NEGATIVE (NEGATIVE) Urine Bilirubin NEGATIVE (NEGATIVE) Urine Urobilinogen 0.2 (<2.0) EU/dL Ur Leukocyte Esterase NEGATIVE (NEGATIVE) Slides for Path Review 12/03/19 Range/Units 05:33 WBC (4.0-11.0) K/uL RBC (4.50-5.90) M/uL Hgb (13.0-17.0) g/dL Hct (38.0-50.0) % MCV (80.0-98.0) fL MCH (27.0-32.0) pg MCHC (31.0-37.0) g/dL RDW Std Deviation (28.0-62.0) fl RDW Coeff of Ileana (11.0-15.0) % Plt Count (150-400) K/uL MPV (7.40-12.00) fL Add Manual Diff Neutrophils % (Manual) (48.0-80.0) % Band Neutrophils % % Lymphocytes % (Manual) (16.0-40.0) % Monocytes % (Manual) (0.0-15.0) % Eosinophils % (Manual) (0.0-7.0) % Basophils % (Manual) (0.0-1.5) % Metamyelocytes % % Myelocytes % % Nucleated RBC % /100WBC Absolute Seg Neuts (1.4-5.7) Band Neutrophils # Lymphocytes # (Manual) (0.6-2.4) Monocytes # (Manual) (0.0-0.8) Eosinophils # (Manual) (0.0-0.7) Basophils # (Manual) (0.0-0.1) Absolute Metamyelocyte Absolute Myelocytes Nucleated RBCs # K/uL Lactate (0.20-2.00) mmol/L Sodium 142 (136-148) mmol/L Potassium 4.4 (3.5-5.1) mmol/L Chloride 107 (98-107) mmol/L Carbon Dioxide 27.3 (21.0-32.0) mmol/L BUN 16 (7.0-18.0) mg/dL Creatinine 0.8 (0.8-1.3) mg/dL Est Cr Clr Drug Dosing 113.77 mL/min Estimated GFR (MDRD) > 60.0 ml/min Glucose 104 (74-106) mg/dL Calcium 8.6 (8.5-10.1) mg/dL Magnesium (1.8-2.4) mg/dL Total Bilirubin (0.2-1.0) mg/dL AST (15-37) IU/L ALT (14-63) IU/L Alkaline Phosphatase (46-116) U/L B-Natriuretic Peptide (<100) PG/ML Total Protein (6.4-8.2) g/dL Albumin (3.4-5.0) g/dL Globulin (2.6-4.0) g/dL Albumin/Globulin Ratio (0.9-1.6) Urine Color Urine Appearance Urine pH (5.0-8.0) Ur Specific [place] (1.001-1.035) Urine Protein (NEGATIVE) mg/dL Urine Glucose (UA) (NEGATIVE) mg/dL Urine Ketones (NEGATIVE) mg/dL Urine Occult Blood (NEGATIVE) Urine Nitrite (NEGATIVE) Urine Bilirubin (NEGATIVE) Urine Urobilinogen (<2.0) EU/dL Ur Leukocyte Esterase (NEGATIVE) Slides for Path Review Med Orders - Current: Current Medications Acetaminophen (Tylenol) 650 mg PO Q4H PRN PRN Reason: Pain (Mild 1-3)/fever Hydrocodone Bitart/Acetaminophen ([place] 325-5 Mg) 2 tab PO Q4H PRN PRN Reason: Pain (moderate 4-6) Last Admin: 12/03/19 05:52 Dose: 2 tab Allopurinol (Zyloprim) 300 mg PO DAILY [facility] Last Admin: 12/03/19 08:02 Dose: 300 mg Atorvastatin Calcium (Lipitor) 20 mg PO DAILY [facility] Last Admin: 12/03/19 08:03 Dose: 20 mg Carvedilol (Coreg) 6.25 mg PO BID [facility] Last Admin: 12/03/19 08:02 Dose: 6.25 mg Diphenhydramine HCl (Benadryl) 25 mg PO Q12H PRN PRN Reason: Itching Last Admin: 12/02/19 21:44 Dose: 25 mg Enoxaparin Sodium (Lovenox) 40 mg SUBCUT Q24H [facility] Last Admin: 12/02/19 13:45 Dose: 40 mg Furosemide (Lasix) 40 mg PO DAILY [facility] Last Admin: 12/03/19 08:03 Dose: 40 mg Levofloxacin/Dextrose 750 mg/ (Premix) 150 mls @ 100 mls/hr IV Q24H [facility] Last Admin: 12/03/19 08:05 Dose: 100 mls/hr Vancomycin HCl 1.25 gm/ Sodium (Chloride) 250 mls @ 166.667 mls/hr IV Q8H [facility] Last Admin: 12/03/19 01:51 Dose: 166.667 mls/hr Lisinopril (Prinivil) 10 mg PO DAILY [facility] Last Admin: 12/03/19 08:04 Dose: 10 mg Morphine Sulfate (Morphine) 3 mg IVPUSH Q4H PRN PRN Reason: Pain (severe 7-10) Last Admin: 12/02/19 14:00 Dose: 3 mg Ondansetron HCl (Zofran) 4 mg IVPUSH Q4H PRN PRN Reason: Nausea Pantoprazole Sodium (Protonix) 40 mg PO ACBREAKFAST [facility] Last Admin: 12/03/19 07:58 Dose: 40 mg Sertraline HCl (Zoloft) 50 mg PO DAILY [facility] Last Admin: 12/03/19 08:03 Dose: 50 mg Sodium Chloride (Saline Flush) 10 ml FLUSH ASDIRECTED PRN PRN Reason: Keep Vein Open Last Admin: 12/02/19 10:09 Dose: 10 ml Sodium Chloride (Saline Flush) 2.5 ml FLUSH ASDIRECTED PRN PRN Reason: Keep Vein Open Last Admin: 12/02/19 10:09 Dose: 2.5 ml Discontinued Medications Sodium Chloride (Normal Saline) 1,000 mls @ 1,000 mls/hr IV .Bolus ONE Stop: 12/02/19 10:50 Last Admin: 12/02/19 10:09 Dose: 1,000 mls/hr Vancomycin HCl 1 gm/ Sodium (Chloride) 250 mls @ 166 mls/hr IV ONETIME ONE Stop: 12/02/19 11:21 Last Admin: 12/02/19 10:09 Dose: 166 mls/hr Levofloxacin/Dextrose 750 mg/ (Premix) 150 mls @ 100 mls/hr IV ONETIME ONE Stop: 12/02/19 11:22 Last Admin: 12/02/19 11:46 Dose: 100 mls/hr Sodium Chloride (Normal Saline) 1,000 mls @ 100 mls/hr IV Q10H [facility] Last Admin: 12/02/19 22:52 Dose: 100 mls/hr Vancomycin HCl (Pharmacy To Dose - Vancomycin) 1 dose .XX ASDIRECTED [facility] - Exam General: Alert, Oriented, Cooperative, No Acute Distress Lungs: Clear to Auscultation, Normal Respiratory Effort Cardiovascular: Regular Rate, Regular Rhythm GI/Abdominal Exam: Normal Bowel Sounds, Soft, Non-Tender Extremities: Normal Inspection, Normal Range of Motion, No Pedal Edema, Leg Pain (anterior R funes, erythema improved along swelling. ) Skin: Dry (flaking skin noted to anterior R leg) Wound/Incisions: Healing Well, No Drainage, Erythema Improving Psy/Mental Status: Alert, Normal Affect, Normal Mood Sepsis Event Note - Evaluation Sepsis Screening Result: No Definite Risk - Focused Exam Vital Signs: Vital Signs Temp Pulse Pulse Resp BP BP Pulse Ox 12/03/19 08:04 187/91 H 12/03/19 08:02 81 187/91 H 12/03/19 07:59 97.4 F 81 16 187/91 H 98 12/03/19 04:00 97 F 69 20 142/75 H 99 12/03/19 00:11 96.9 F 76 19 163/80 H 96 Date Exam was Performed: 12/03/19 Time Exam was Performed: 09:18 - Problem List & Annotations (1) Cellulitis of leg, right SNOMED Code(s): 034397848 Code(s): L03.115 - CELLULITIS OF RIGHT LOWER LIMB Status: Acute Current Visit: Yes (2) Sleep apnea SNOMED Code(s): 71779342 Code(s): G47.30 - SLEEP APNEA, UNSPECIFIED Status: Chronic Current Visit : No (3) Obesity SNOMED Code(s): 284122291 Code(s): E66.9 - OBESITY, UNSPECIFIED Status: Chronic Current Visit: No (4) Gout SNOMED Code(s): 00738806 Code(s): M10.9 - GOUT, UNSPECIFIED Status: Chronic Current Visit: No (5) HTN (hypertension) SNOMED Code(s): 61858816 Code(s): I10 - ESSENTIAL (PRIMARY) HYPERTENSION Status: Chronic Current Visit: Yes Qualifiers: Hypertension type: essential hypertension Qualified Code(s): I10 - Essential (primary) hypertension (6) Asthma SNOMED Code(s): 918807085 Code(s): J45.909 - UNSPECIFIED ASTHMA, UNCOMPLICATED Status: Chronic Current Visit: Yes Qualifiers: Asthma severity: mild Asthma persistence: intermittent Asthma complication type: uncomplicated Qualified Code(s): J45.20 - Mild intermittent asthma, uncomplicated - Problem List Review Problem List Initiated/Reviewed/Updated: Yes - My Orders Last 24 Hours: My Active Orders 12/02/19 12:48 Intake and Output [RC] Q12H May Shower [RC] ASDIRECTED Oxygen Therapy [RC] PRN Up ad Maureen [RC] ASDIRECTED VTE/DVT Education [RC] PER UNIT ROUTINE Vital Signs [RC] Q4H Acetaminophen [Tylenol] 650 mg PO Q4H PRN Acetaminophen/HYDROcodone [[place] 325-5 MG] 2 tab PO Q4H PRN Morphine 3 mg IVPUSH Q4H PRN Ondansetron [Zofran] 4 mg IVPUSH Q4H PRN Resuscitation Status Routine 12/02/19 12:49 Elevate Extremity [RC] BID 12/02/19 13:00 Enoxaparin [Lovenox] 40 mg SUBCUT Q24H 12/02/19 18:00 Vancomycin 1.25 gm Sodium Chloride 0.9% [Normal Saline (AdvBag)] 250 ml IV Q8H 12/02/19 21:00 carvediloL [Coreg] 6.25 mg PO BID 12/02/19 Lunch Regular Diet [DIET] 12/03/19 07:30 Pantoprazole [ProTONIX] 40 mg PO ACBREAKFAST 12/03/19 09:00 Furosemide [Lasix] 40 mg PO DAILY Levofloxacin/Dextrose 5%-Water [Levaquin in D5W 750 MG/150 ML] 750 mg Premix Bag 1 bag IV Q24H Sertraline [Zoloft] 50 mg PO DAILY allopurinoL [Zyloprim] 300 mg PO DAILY atorvaSTATin [Lipitor] 20 mg PO DAILY lisinopriL [Prinivil] 10 mg PO DAILY 12/03/19 17:30 VANCOMYCIN TROUGH [CHEM] Routine 12/04/19 05:11 BASIC METABOLIC PANEL,BMP [CHEM] AM CBC WITH AUTO DIFF [HEME] AM 12/05/19 05:11 BASIC METABOLIC PANEL,BMP [CHEM] AM CBC WITH AUTO DIFF [HEME] AM - Plan Plan:: This 49 year old male admitted with r lower leg cellulitis 1. R lower leg cellulitis - BC pending - Continue Vancomycin and Levaquin - Elevate R leg as much as possible - Venous doppler negative for DVT 2. HTN: stable - Continue home medications 3. YOSSI with CPAP: Stable - continue CPAP 4. Asthma: stable - Rescue inhaler PRN Diet: Regular VTE prophylaxis: Lovenox CODE Status: Full Code Disposition: 2-3 days pending improvement
[2019-12-03] MEDS: Enoxaparin 40 MG/0.4 ML Syringe SUBCUT SCH (13:24)
[2019-12-03] MEDS: Acetaminophen 325 MG Tab PO PRN (18:40)
[2019-12-04 06:48] LABS: BLOOD UREA NITROGEN,BUN 12 mg/dL (7.0-18.0); CARBON DIOXIDE,CO2 28.1 mmol/L (21.0-32.0); CHLORIDE,CL 105 mmol/L (98-107); GLUCOSE RANDOM 105 mg/dL (74-106); POTASSIUM,K 4.5 mmol/L (3.5-5.1); SODIUM,NA 141 mmol/L (136-148)
[2019-12-04] MEDS: Pantoprazole 40 MG Tab.CR PO SCH (07:17)
[2019-12-04 07:40] VITALS: BP 187/92; PULSE 86
[2019-12-04] MEDS: Carvedilol 3.125 MG Tab PO SCH (08:41)
[2019-12-04] MEDS: Lisinopril 10 MG Tab PO SCH (08:41)
[2019-12-04] MEDS: Sertraline 50 MG Tab PO SCH (08:42)
[2019-12-04] MEDS: atorvaSTATin 20 MG Tab PO SCH (08:42)
[2019-12-04] MEDS: Furosemide 40 MG Tab PO SCH (08:43)
[2019-12-04] MEDS: Allopurinol 300 MG Tab PO SCH (08:43)
[2019-12-04] MEDS: Levofloxacin/Dextrose 5%-Water 750 MG in Premix Bag 1 BAG IV SCH (08:47)
[2019-12-04] MEDS: Acetaminophen 325 MG Tab PO PRN (08:51)
--- NOTE | 2019-12-04 11:47 | PCM.DCSUM1 ---
Discharge Summary - Discharge Data Discharge Date: 12/04/19 Discharge Disposition: Home, Self-Care 01 Condition: Stable - Referral to Home Health Primary Care Physician: Randy Nguyen MD - Patient Summary/Data Hospital Course: 49 year old male with pmh of HTN, recurrent cellulitis to R leg, obesity and YOSSI who was admitted for right lower leg cellulitis. He presented to the ED with complaints of fevers and pain to right lower leg along with swelling and redness. In the ED no leukocytosis noted, bandemia noted at 7, lactic acid 1.1, BMP WNL. Xray of tib/fib revealed no osseous concerns, soft tissue edema. VS stable. Right leg Doppler negative for DVT. He was treated with two days of Levaquin and Vancomycin. This morning states the erythema and edema has resolved. We will discharge him home with five more days of Bactrim. - Patient Instructions Diet: Regular Diet as Tolerated - Discharge Plan *PRESCRIPTION DRUG MONITORING PROGRAM REVIEWED*: Yes *COPY OF PRESCRIPTION DRUG MONITORING REPORT IN PATIENT TAMMI: Yes Prescriptions/Med Rec: Sulfamethoxazole/Trimethoprim [Bactrim Ds Tablet] 1 each PO BID #10 tablet Home Medications: Home Meds Allopurinol [Zyloprim] 300 mg PO DAILY 08/14/16 [History] Carvedilol [Coreg] 6.25 mg PO BID 09/30/19 [History] Furosemide 40 mg PO DAILY 09/30/19 [History] Indomethacin 25 mg PO TID PRN 09/30/19 [History] Lisinopril [Zestril] 20 mg PO DAILY 09/30/19 [History] Pantoprazole [ProTONIX] 40 mg PO ACBREAKFAST 09/30/19 [History] Sertraline [Zoloft] 50 mg PO DAILY 09/30/19 [History] EPINEPHrine [Epinephrine] 1 dose INJECT ASDIRECTED 12/02/19 [History] Sulfamethoxazole/Trimethoprim [Bactrim Ds Tablet] 1 each PO BID #10 tablet [Rx] Patient Handouts: Cellulitis, Adult, [id number] Referrals: Randy Nguyen MD [Primary Care Provider] - Al Sierra MD [Ordering Only Provider] - 12/13/19 9:45 am (Arrive 15 minutes minutes early with photo ID and insurance card. Your appointment was not able to be made with Dr. Nguyen due to his schedule. ) - Discharge Summary/Plan Comment DC Time >30 min.: No - Patient Data Vitals - Most Recent: Last Vital Signs Temp 36.6 C 12/04/19 07:37 Pulse 86 12/04/19 08:41 Resp 16 12/04/19 07:37 BP 187/92 H 12/04/19 08:41 Pulse Ox 97 12/04/19 07:37 Weight - Most Recent: 150 kg I&O - Last 24 hours: Intake & Output 12/03/19 12/04/19 12/04/19 22:59 06:59 14:59 Intake Total 1100 550 Output Total 900 2770 Balance 200 -2220 Lab Results - Last 24 hrs: Laboratory Results - last 24 hr 12/03/19 12/04/19 12/04/19 Range/Units 17:27 06:08 06:08 WBC 8.58 (4.0-11.0) K/uL RBC 3.62 L (4.50-5.90) M/uL Hgb 11.5 L (13.0-17.0) g/dL Hct 36.7 L (38.0-50.0) % MCV 101.4 H (80.0-98.0) fL MCH 31.8 (27.0-32.0) pg MCHC 31.3 (31.0-37.0) g/dL RDW Std Deviation 48.1 (28.0-62.0) fl RDW Coeff of Ileana 13 (11.0-15.0) % Plt Count 285 (150-400) K/uL MPV 9.30 (7.40-12.00) fL Neut % (Auto) 64.5 (48.0-80.0) % Lymph % (Auto) 21.6 (16.0-40.0) % [place] % (Auto) 9.3 (0.0-15.0) % Eos % (Auto) 4.4 (0.0-7.0) % Baso % (Auto) 0.2 (0.0-1.5) % Neut # (Auto) 5.5 (1.4-5.7) K/uL Lymph # (Auto) 1.9 (0.6-2.4) K/uL [place] # (Auto) 0.8 (0.0-0.8) K/uL Eos # (Auto) 0.4 (0.0-0.7) K/uL Baso # (Auto) 0.0 (0.0-0.1) K/uL Nucleated RBC % 0.0 /100WBC Nucleated RBCs # 0 K/uL Sodium 141 (136-148) mmol/L Potassium 4.5 (3.5-5.1) mmol/L Chloride 105 (98-107) mmol/L Carbon Dioxide 28.1 (21.0-32.0) mmol/L BUN 12 (7.0-18.0) mg/dL Creatinine 0.8 (0.8-1.3) mg/dL Est Cr Clr Drug Dosing 113.77 mL/min Estimated GFR (MDRD) > 60.0 ml/min Glucose 105 (74-106) mg/dL Calcium 8.6 (8.5-10.1) mg/dL Vancomycin Trough 12.1 H (5.0-10.0) ug/mL ANGY Results - Last 24 hrs: Microbiology 12/02/19 09:37 Aerobic Blood Culture - Preliminary Blood - Venous - Lab Draw NO GROWTH AFTER 2 DAYS Anaerobic Blood Culture - Preliminary NO GROWTH AFTER 2 DAYS 12/02/19 09:20 Aerobic Blood Culture - Preliminary Blood - Venous NO GROWTH AFTER 2 DAYS Anaerobic Blood Culture - Preliminary NO GROWTH AFTER 2 DAYS Med Orders - Current: Current Medications Acetaminophen (Tylenol) 650 mg PO Q4H PRN PRN Reason: Pain (Mild 1-3)/fever Last Admin: 12/04/19 08:51 Dose: 650 mg Hydrocodone Bitart/Acetaminophen ([place] 325-5 Mg) 2 tab PO Q4H PRN PRN Reason: Pain (moderate 4-6) Last Admin: 12/03/19 05:52 Dose: 2 tab Allopurinol (Zyloprim) 300 mg PO DAILY [facility] Last Admin: 12/04/19 08:43 Dose: 300 mg Atorvastatin Calcium (Lipitor) 20 mg PO DAILY [facility] Last Admin: 12/04/19 08:42 Dose: 20 mg Carvedilol (Coreg) 6.25 mg PO BID [facility] Last Admin: 12/04/19 08:41 Dose: 6.25 mg Diphenhydramine HCl (Benadryl) 25 mg PO Q12H PRN PRN Reason: Itching Last Admin: 12/02/19 21:44 Dose: 25 mg Enoxaparin Sodium (Lovenox) 40 mg SUBCUT Q24H [facility] Last Admin: 12/03/19 13:24 Dose: 40 mg Furosemide (Lasix) 40 mg PO DAILY [facility] Last Admin: 12/04/19 08:43 Dose: 40 mg Levofloxacin/Dextrose 750 mg/ (Premix) 150 mls @ 100 mls/hr IV Q24H [facility] Last Admin: 12/04/19 08:47 Dose: 100 mls/hr Vancomycin HCl 1.25 gm/ Sodium (Chloride) 250 mls @ 166.667 mls/hr IV Q8H [facility] Last Admin: 12/04/19 10:18 Dose: 166.667 mls/hr Lisinopril (Prinivil) 10 mg PO DAILY [facility] Last Admin: 12/04/19 08:41 Dose: 10 mg Morphine Sulfate (Morphine) 3 mg IVPUSH Q4H PRN PRN Reason: Pain (severe 7-10) Last Admin: 12/02/19 14:00 Dose: 3 mg Ondansetron HCl (Zofran) 4 mg IVPUSH Q4H PRN PRN Reason: Nausea Pantoprazole Sodium (Protonix) 40 mg PO ACBREAKFAST [facility] Last Admin: 12/04/19 07:17 Dose: 40 mg Sertraline HCl (Zoloft) 50 mg PO DAILY [facility] Last Admin: 12/04/19 08:42 Dose: 50 mg Sodium Chloride (Saline Flush) 10 ml FLUSH ASDIRECTED PRN PRN Reason: Keep Vein Open Last Admin: 12/02/19 10:09 Dose: 10 ml Sodium Chloride (Saline Flush) 2.5 ml FLUSH ASDIRECTED PRN PRN Reason: Keep Vein Open Last Admin: 12/02/19 10:09 Dose: 2.5 ml Discontinued Medications Sodium Chloride (Normal Saline) 1,000 mls @ 1,000 mls/hr IV .Bolus ONE Stop: 12/02/19 10:50 Last Admin: 12/02/19 10:09 Dose: 1,000 mls/hr Vancomycin HCl 1 gm/ Sodium (Chloride) 250 mls @ 166 mls/hr IV ONETIME ONE Stop: 12/02/19 11:21 Last Admin: 12/02/19 10:09 Dose: 166 mls/hr Levofloxacin/Dextrose 750 mg/ (Premix) 150 mls @ 100 mls/hr IV ONETIME ONE Stop: 12/02/19 11:22 Last Admin: 12/02/19 11:46 Dose: 100 mls/hr Sodium Chloride (Normal Saline) 1,000 mls @ 100 mls/hr IV Q10H [facility] Last Admin: 12/02/19 22:52 Dose: 100 mls/hr Vancomycin HCl (Pharmacy To Dose - Vancomycin) 1 dose .XX ASDIRECTED [facility]
== END 2019-12-04 12:18 | disposition home or self-care (01) | DRG 603 ==
LOC: MW.ED 09:10 → MW.MS 11:42 → MW.ED 11:42 → MW.MS 11:42 → MW.ED 12:52
PROVIDERS: ADMIT Internal Medicine; ATTEND Internal Medicine
DX: L03.115 Cellulitis of right lower limb (principal); Z68.42 Body mass index [BMI] 45.0-49.9, adult; E66.9 Obesity, unspecified; I10 Essential (primary) hypertension; J44.9 Chronic obstructive pulmonary disease, unspecified; M10.9 Gout, unspecified; M19.90 Unspecified osteoarthritis, unspecified site; J45.20 Mild intermittent asthma, uncomplicated; G47.33 Obstructive sleep apnea (adult) (pediatric); Z99.89 Dependence on other enabling machines and devices; Z88.6 Allergy status to analgesic agent; Z88.0 Allergy status to penicillin; Z91.040 Latex allergy status; Z79.899 Other long term (current) drug therapy; Z90.49 Acquired absence of other specified parts of digestive tract
CPT/HCPCS: 36415; 73590-26-RT; 73590-RT; 80048; 80053; 80202; 81003; 83605; 83735; 83880; 85025; 87040; 93971-26-RT; 93971-RT; 96365; 99285-25; A9270-GY; J1650; J1956; J2270; J3370; J7030; J7050

== ENCOUNTER 2020-09-07 17:17 | Emergency (ER) | payer OTHER ==
--- NOTE | 2020-09-07 17:50 | PCM.SN.2 ---
- Free Text/Narrative Note: EKG Time 546 Rate 103 Sinus Tach No SAIMA
[2020-09-07] MEDS ORDERED: Acetaminophen/oxyCODONE 325-10 MG Tab PO ONE (17:53)
--- NOTE | 2020-09-07 17:59 | EDM.PDOC ---
ED HPI GENERAL MEDICAL PROBLEM - General Chief Complaint: Lower Extremity Injury/Pain Stated Complaint: RT LEG PAIN, BURNING, TINGLING, SWELLING Time Seen by Provider: 09/07/20 17:19 Source of Information: Reports: Patient History Limitations: Reports: No Limitations - History of Present Illness INITIAL COMMENTS - FREE TEXT/NARRATIVE: HISTORY AND PHYSICAL: History of present illness: Patient is a 49-year-old male who presents to the emergency room with complaints of right lower extremity pain and swelling. He states 3 weeks ago he had slipped and fallen on his right hip and felt like he needed a chiropractic adjustment. He was told by the chiropractor that his hips were off by "1 inch". Over the past 2 weeks his right hip pain has gradually improved and he currently has no pain in the right hip but does have sciatica going down the glutes and posterior thigh. He has had several adjustments since the fall and currently has pain to the right lower extremity from the knee downward. He has noticed no improvement with the last adjustment from the chiropractor. States he had significant bruising to the lateral right calf which is now resolved. He states the soft tissue of the posterior and lateral calf is filtering machine tender to palpation and feels the area is swollen. On a secondary note he states he has felt fatigued and short of breath with physical exertion. Has not been able to sleep well due to the leg discomfort. He has been continuing to ambulate with a normal steady gait and able to bear weight although this does cause pain. Patient denies any fever, chills, headache, change in vision, syncope or near syncope. Denies any chest pain, back pain, or cough. Denies any abdominal pain, nausea, vomiting, diarrhea, constipation or dysuria. Has not noted any blood in urine or stool. Patient has been eating and drinking appropriately. Review of systems: As per history of present illness and below otherwise all systems reviewed and negative. Past medical history: As per history of present illness and as reviewed below otherwise noncontributory. Surgical history: As per history of present illness and as reviewed below otherwise noncontributor y. Social history: See social history for further information Family history: As per history of present illness and as reviewed below otherwise noncontributory. Physical exam: General: Well developed and well nourished 49 year old male. Alert and orientated x 3. Nontoxic in appearance and in no acute distress. Vital signs are stable and have been reviewed by me. Nursing notes were reviewed. HEENT: Atraumatic, normocephalic, pupils equal and reactive bilaterally, negative for conjunctival pallor or scleral icterus, mucous membranes moist, TMs normal bilaterally, throat clear, neck supple, nontender, trachea midline. No drooling or trismus noted. No meningeal signs. No hot potato voice noted. Lungs: Clear to auscultation, breath sounds equal bilaterally, chest nontender. Normal work of breathing, no accessory muscles used. Heart: S1S2, regular rate and rhythm without overt murmur Abdomen: Soft,obese, nontender. Negative for masses or hepatosplenomegaly. Negative for costovertebral tenderness. Pelvis: Stable nontender. C-spine/Back: No pinpoint vertebral tenderness upon palpation. No crepitus, step-offs or obvious deformities. Patient is ambulatory into the emergency room without difficulty or deficit. Able to rock back on heels and walk on toes. Denies any urinary or fecal incontinence. Denies any numbness, tingling or saddle paresthesia. No concerns of serious infection, fracture or cord compression, or cauda equina syndrome. Deep tendon reflexes brisk bilaterally. Skin: Intact, warm, dry. No lesions or rashes noted. Hematologic: No petechiae or purpra. Mucosa appropriate color and normal nail bed color and refill. Extremities: Atraumatic, moves all extremities per self without difficulty or deficits, pain with palpation of the right mid calf and the soft tissue of the lateral calf as well. The left and right calf are symmetrical, +1 pitting edema bilaterally. Strong pedal and pretibial pulses bilaterally. Cap refill less than 3 seconds. Good sensation to bilateral distal extremities. Neurovascular unremarkable. Neuro: Awake, alert, oriented. Cranial nerves II through XII unremarkable. Cerebellum unremarkable. Motor and sensory unremarkable throughout. Exam nonfocal. Psychiatric: Mood and affect are appropriate. Normal thought process. Answering questions appropriately. Notes: Negative pelvis x-ray. Negative right tibia and fibula. Presumed soft tissue swelling/edema of the calf. Lab work is unremarkable. He states his pain is improved after the Percocet although notices the sciatic pain when he is resting on his right glutes/hip. I have talked with the patient about today's findings, in addition to providing specific details for plan of care. Reassessment at the time of disposition demonstrates that the patient is in no acute distress. The patient is stable for discharge, counseling was provided and we discussed in great detail signs and symptoms that would prompt them to return to the Emergency Department. Medication, follow up and supportive care measures were reviewed and discussed. Voices understanding and is agreeable to plan of care. Denies any further questions or concerns at this time. Diagnostics: X-ray pelvis, x-ray tib-fib, right lower extremity ultrasound, CBC, CMP, D- dimer, coronavirus Therapeutics: Percocet Prescription: Percocet, Prednisone Impression: Right lower extremity injury Plan: 1. Today your lab work, ultrasound and x-ray were within normal limits with the exception of soft tissue swelling in the lower extremity. Rest, ice, elevate the extremity as able. 2. You can take Tylenol and/or ibuprofen as needed for pain management. For moderate to severe pain I have given you a prescription for Percocet. This medication may cause drowsiness so do not take it while driving or needing to be functioning outside of the house. 3. We encourage you to follow up with orthopedic provider in the next few days for re-evaluation and further care/management. If your symptoms should worsen, new symptoms develop or any of the signs and symptoms we discussed should arise please return to the emergency room or call 911 (if needed). Definitive disposition and diagnosis as appropriate pending reevaluation and review of above. Right hip/leg Pain Score (Numeric/FACES): 8 - Related Data Allergies Allergy/AdvReac Type Severity Reaction Status Date / Time aspirin Allergy Anaphylactic Verified 09/07/20 17:31 Shock latex Allergy Rash Verified 09/07/20 17:31 Penicillins Allergy Anaphylactic Verified 09/07/20 17:31 Shock Home Meds: Home Meds Allopurinol [Zyloprim] 300 mg PO DAILY 08/14/16 [History] Furosemide 40 mg PO DAILY 09/30/19 [History] Indomethacin 25 mg PO TID PRN 09/30/19 [History] Pantoprazole [ProTONIX] 40 mg PO ACBREAKFAST 09/30/19 [History] Sertraline [Zoloft] 50 mg PO DAILY 09/30/19 [History] carvediloL [Coreg] 6.25 mg PO BID 09/30/19 [History] lisinopriL [Zestril] 20 mg PO DAILY 09/30/19 [History] EPINEPHrine [Epinephrine] 1 dose INJECT ASDIRECTED 12/02/19 [History] oxyCODONE HCl/Acetaminophen [Percocet 10-325 mg Tablet] 1 each PO Q6HR PRN #30 tablet 09/07/20 [Rx] predniSONE [Prednisone] 60 mg PO DAILY 4 Days #12 tablet 09/07/20 [Rx] Past Medical History HEENT History: Reports: Allergic Rhinitis, Other (See Below) Other HEENT History: "overactive esophageal muscles" esophagoscopy with foreign body removal x3 Cardiovascular History: Reports: Hypertension Respiratory History: Reports: Asthma, COPD, Sleep Apnea Other Respiratory History: uses CPAP Gastrointestinal History: Reports: Gastritis, Other (See Below) Genitourinary History: Reports: None Musculoskeletal History: Reports: Arthritis, Gout Neurological History: Reports: None Psychiatric History: Reports: None Endocrine/Metabolic History: Reports: Obesity/BMI 30+ Hematologic History: Reports: None Immunologic History: Reports: None Oncologic (Cancer) History: Reports: None Dermatologic History: Reports: None, Other (See Below) Other Dermatologic History: has rash on legs - Infectious Disease History Infectious Disease History: Reports: Chicken Pox, Measles - Past Surgical History Head Surgeries/Procedures: Reports: None HEENT Surgical History: Reports: Other (See Below) Other HEENT Surgeries/Procedures: "throat stretched" Cardiovascular Surgical History: Reports: None Respiratory Surgical History: Reports: None GI Surgical History: Reports: Appendectomy, Esophageal Dilatation, Hernia Repair/Other Other GI Surgeries/Procedures: EGD with diaitation 10 yrs ago, esophagoscopy rigid with foreign body removal x3 Male Surgical History: Reports: None Endocrine Surgical History: Reports: None Neurological Surgical History: Reports: None Musculoskeletal Surgical History: Reports: None Oncologic Surgical History: Reports: None Dermatological Surgical History: Reports: None Social & Family History - Family History Family Medical History: No Pertinent Family History - Tobacco Use Tobacco Use Status *Q: Never Tobacco User - Caffeine Use Caffeine Use: Reports: None - Recreational Drug Use Recreational Drug Use: No - Living Situation & Occupation Living situation: Reports: Occupation: Employed Review of Systems - Review of Systems Review Of Systems: Comprehensive ROS is negative, except as noted in HPI. ED EXAM, GENERAL - Physical Exam Exam: See Below (See dictation) Course - Vital Signs Last Recorded V/S: Last Vital Signs Temp 96.9 F 09/07/20 17:28 Pulse 108 H 09/07/20 17:28 Resp 20 09/07/20 17:28 BP 169/92 H 09/07/20 17:28 Pulse Ox 97 09/07/20 17:28 - Orders/Labs/Meds Orders: Active Orders 24 hr Category Date Time Status EKG 12 Lead [EKG Documentation Completion] [RC] STAT Care 09/07/20 17:36 Active Labs: Laboratory Tests 09/07/20 09/07/20 09/07/20 Range/Units 17:46 17:46 17:46 WBC 10.22 (4.0-11.0) K/uL RBC 4.25 L (4.50-5.90) M/uL Hgb 13.7 (13.0-17.0) g/dL Hct 42.3 (38.0-50.0) % MCV 99.5 H (80.0-98.0) fL MCH 32.2 H (27.0-32.0) pg MCHC 32.4 (31.0-37.0) g/dL RDW Std Deviation 46.0 (28.0-62.0) fl RDW Coeff of Ileana 13 (11.0-15.0) % Plt Count 261 (150-400) K/uL MPV 9.80 (7.40-12.00) fL Neut % (Auto) 61.0 (48.0-80.0) % Lymph % (Auto) 20.6 (16.0-40.0) % Hidalgo % (Auto) 9.2 (0.0-15.0) % Eos % (Auto) 8.8 H (0.0-7.0) % Baso % (Auto) 0.4 (0.0-1.5) % Neut # (Auto) 6.2 H (1.4-5.7) K/uL Lymph # (Auto) 2.1 (0.6-2.4) K/uL Hidalgo # (Auto) 0.9 H (0.0-0.8) K/uL Eos # (Auto) 0.9 H (0.0-0.7) K/uL Baso # (Auto) 0.0 (0.0-0.1) K/uL Nucleated RBC % 0.0 /100WBC Nucleated RBCs # 0 K/uL INR 1.00 D-Dimer, Quantitative (0.0-0.50) mg/L FEU Sodium 136 (136-148) mmol/L Potassium 3.8 (3.5-5.1) mmol/L Chloride 100 (98-107) mmol/L Carbon Dioxide 28.1 (21.0-32.0) mmol/L BUN 13 (7.0-18.0) mg/dL Creatinine 0.9 (0.8-1.3) mg/dL Est Cr Clr Drug Dosing 101.47 mL/min Estimated GFR (MDRD) > 60.0 ml/min Glucose 109 H (74-106) mg/dL Calcium 8.6 (8.5-10.1) mg/dL Total Bilirubin 0.7 (0.2-1.0) mg/dL AST 71 H (15-37) IU/L ALT 105 H (14-63) IU/L Alkaline Phosphatase 85 (46-116) U/L Total Protein 7.3 (6.4-8.2) g/dL Albumin 3.7 (3.4-5.0) g/dL Globulin 3.6 (2.6-4.0) g/dL Albumin/Globulin Ratio 1.0 (0.9-1.6) 09/07/20 Range/Units 17:46 WBC (4.0-11.0) K/uL RBC (4.50-5.90) M/uL Hgb (13.0-17.0) g/dL Hct (38.0-50.0) % MCV (80.0-98.0) fL MCH (27.0-32.0) pg MCHC (31.0-37.0) g/dL RDW Std Deviation (28.0-62.0) fl RDW Coeff of Ileana (11.0-15.0) % Plt Count (150-400) K/uL MPV (7.40-12.00) fL Neut % (Auto) (48.0-80.0) % Lymph % (Auto) (16.0-40.0) % Hidalgo % (Auto) (0.0-15.0) % Eos % (Auto) (0.0-7.0) % Baso % (Auto) (0.0-1.5) % Neut # (Auto) (1.4-5.7) K/uL Lymph # (Auto) (0.6-2.4) K/uL Hidalgo # (Auto) (0.0-0.8) K/uL Eos # (Auto) (0.0-0.7) K/uL Baso # (Auto) (0.0-0.1) K/uL Nucleated RBC % /100WBC Nucleated RBCs # K/uL INR D-Dimer, Quantitative 0.48 (0.0-0.50) mg/L FEU Sodium (136-148) mmol/L Potassium (3.5-5.1) mmol/L Chloride (98-107) mmol/L Carbon Dioxide (21.0-32.0) mmol/L BUN (7.0-18.0) mg/dL Creatinine (0.8-1.3) mg/dL Est Cr Clr Drug Dosing mL/min Estimated GFR (MDRD) ml/min Glucose (74-106) mg/dL Calcium (8.5-10.1) mg/dL Total Bilirubin (0.2-1.0) mg/dL AST (15-37) IU/L ALT (14-63) IU/L Alkaline Phosphatase (46-116) U/L Total Protein (6.4-8.2) g/dL Albumin (3.4-5.0) g/dL Globulin (2.6-4.0) g/dL Albumin/Globulin Ratio (0.9-1.6) Meds: Medications Discontinued Medications Generic Name Dose Route Start Last Admin Trade Name Freq PRN Reason Stop Dose Admin Oxycodone/Acetaminophen 1 tab 09/07/20 17:53 09/07/20 18:00 Percocet 325-10 Mg PO 09/07/20 17:54 1 tab ONETIME ONE Administration Departure - Departure Time of Disposition: 19:36 Disposition: Home, Self-Care 01 Clinical Impression: Right leg injury - Discharge Information Prescriptions: oxyCODONE HCl/Acetaminophen [Percocet 10-325 mg Tablet] 1 each PO Q6HR PRN #30 tablet PRN Reason: Pain predniSONE [Prednisone] 60 mg PO DAILY 4 Days #12 tablet Referrals: Randy Nguyen MD [Primary Care Provider] - Forms: ED Department Discharge Additional Instructions: The following information is given to patients seen in the emergency department who are being discharged to home. This information is to outline your options for follow-up care. We provide all patients seen in our emergency department with a follow-up referral. The need for follow-up, as well as the timing and circumstances, are variable depending upon the specifics of your emergency department visit. If you don't have a primary care physician on staff, we will provide you with a referral. We always advise you to contact your personal physician following an emergency department visit to inform them of the circumstance of the visit and for follow-up with them and/or the need for any referrals to a consulting specialist. The emergency department will also refer you to a specialist when appropriate. This referral assures that you have the opportunity for follow-up care with a specialist. All of these measure are taken in an effort to provide you with optimal care, which includes your follow-up. Under all circumstances we always encourage you to contact your private physician who remains a resource for coordinating your care. When calling for follow-up care, please make the office aware that this follow-up is from your recent emergency room visit. If for any reason you are refused follow-up, please contact the [facility] Emergency Department at and asked to speak to the emergency department charge nurse. [facility] - [facility] Professional [address], [address] [place] [address] Thank you for choosing the [facility] emergency department in [place] for your medical needs today. It was a pleasure caring for you. Today you were seen in the emergency department for leg pain and swelling. 1. Today your lab work, ultrasound and x-ray were within normal limits with the exception of soft tissue swelling in the lower extremity. Rest, ice, elevate the extremity as able. 2. You can take Tylenol and/or ibuprofen as needed for pain management. For moderate to severe pain I have given you a prescription for Percocet. This medication may cause drowsiness so do not take it while driving or needing to be functioning outside of the house. 3. We encourage you to follow up with orthopedic provider in the next few days for re-evaluation and further care/management. If your symptoms should worsen, new symptoms develop or any of the signs and symptoms we discussed should arise please return to the emergency room or call 911 (if needed). Sepsis Event Note (ED) - Evaluation Sepsis Screening Result: No Definite Risk - Focused Exam Vital Signs: Vital Signs Temp Pulse Resp BP Pulse Ox 09/07/20 17:28 96.9 F 108 H 20 169/92 H 97 - My Orders Last 24 Hours: My Active Orders 09/07/20 17:36 EKG 12 Lead [EKG Documentation Completion] [RC] STAT - Assessment/Plan Last 24 Hours: My Active Orders 09/07/20 17:36 EKG 12 Lead [EKG Documentation Completion] [RC] STAT
[2020-09-07 18:39] LABS: BLOOD UREA NITROGEN,BUN 13 mg/dL (7.0-18.0); CARBON DIOXIDE,CO2 28.1 mmol/L (21.0-32.0); CHLORIDE,CL 100 mmol/L (98-107); GLUCOSE RANDOM 109 mg/dL (74-106); POTASSIUM,K 3.8 mmol/L (3.5-5.1); SODIUM,NA 136 mmol/L (136-148)
--- NOTE | 2020-09-07 18:55 | CR ---
INDICATION: Pain. TECHNIQUE: AP supine view of the pelvis. FINDINGS: No acute fracture, dislocation, or erosion. The sacroiliac joints, symphysis pubis, and hip joints are intact. IMPRESSION: Negative pelvis. Dictated by Tera Steward MD @ Sep 07 2020 6:52PM Signed by Dr. Tera Steward @ Sep 07 2020 6:54PM
--- NOTE | 2020-09-07 18:58 | CR ---
INDICATION: Pain and swelling of the right leg. TECHNIQUE: Two views of the right tibia and fibula from the knee to the ankle. FINDINGS: The right tibia and fibula are negative for fracture or dislocation. No erosion or intrinsic skeletal lesion. The medial and lateral compartments as well as the patellofemoral compartment appear to be within normal limits. There may be diffuse soft tissue swelling within the calf. Please correlate clinically. IMPRESSION: Negative right tibia and fibula. Presumed soft tissue swelling/edema of the calf. Dictated by Tera Steward MD @ Sep 07 2020 6:52PM Signed by Dr. Tera Steward @ Sep 07 2020 6:55PM
--- NOTE | 2020-09-07 19:10 | US ---
INDICATION: Leg pain and swelling TECHNIQUE: Ultrasound venous duplex lower right extremity. Compression venous exam was performed using mosley-scale, color Doppler, and spectral Doppler imaging. COMPARISON: None. FINDINGS: Sonographic imaging demonstrates the right common femoral, deep femoral, superficial femoral, popliteal, posterior tibial and greater saphenous and the contralateral left common femoral veins to be fully compressible with normal color Doppler blood flow. There is a minimal superficial soft tissue edema within calf soft tissues. Incidental of small superficial varicose vein. IMPRESSION: Superficial subcutaneous edema without evidence deep venous thrombosis. Dictated by Miguelangel Azevedo MD @ Sep 07 2020 7:07PM Signed by Dr. Miguelangel Azevedo @ Sep 07 2020 7:09PM
[2020-09-07 23:37] VITALS: BP 154/90; PULSE 102
== END 2020-09-07 20:05 | disposition home or self-care (01) ==
LOC: MW.ED 17:17
DX: S89.91XA Unspecified injury of right lower leg, initial encounter (principal); I10 Essential (primary) hypertension; J44.9 Chronic obstructive pulmonary disease, unspecified; M10.9 Gout, unspecified; E66.9 Obesity, unspecified; Z68.42 Body mass index [BMI] 45.0-49.9, adult; Z88.6 Allergy status to analgesic agent; Z91.040 Latex allergy status; Z88.0 Allergy status to penicillin; W01.0XXA Fall on same level from slipping, tripping and stumbling without subsequent striking against object, initial encounter
CPT/HCPCS: 36415; 72170; 73590; 80053; 85025; 85379; 85610; 93005; 93971; 99284; A9270

== ENCOUNTER 2021-09-20 07:14 | Emergency (ER) | payer OTHER ==
[2021-09-20 07:26] VITALS: BP 156/64; PULSE 88
--- NOTE | 2021-09-20 07:48 | EDM.PDOC ---
ED HPI GENERAL MEDICAL PROBLEM - General Chief Complaint: General Stated Complaint: BERTSH REFERRAL, KIDNEY FAILURE Time Seen by Provider: 09/20/21 07:21 - History of Present Illness INITIAL COMMENTS - FREE TEXT/NARRATIVE: 50-year-old male presents to the emergency department complaining of abnormal lab test and sent in by his doctor. He said some increasing problems with his kidneys over the past year. Patient has had some back pain for about a year and states he had an ultrasound of his kidneys previously. He states his back pain is worse today when he woke up. Patient states a little while ago he slipped on the ice and had some right hip pain but did not injure his back. No history of cancer or IV drug use. Patient states he has some weakness in his left leg but this is been constant and unchanged for about a year. Patient has had some loose stools diarrhea for about 2 weeks. There is no loss of control of the bowel movements or urination. No pain when he pees. No fevers. Patient denies any sick contacts at home. No recent antibiotics or recent travel or undercooked food ingestions. Patient states that the diarrhea is brown and it is not red or black. He does, however, state that he has had some blood on his tissue paper when he wipes and he is scheduled for a colonoscopy in this regard - Related Data Allergies Allergy/AdvReac Type Severity Reaction Status Date / Time aspirin Allergy Anaphylactic Verified 09/20/21 07:28 Shock latex Allergy Rash Verified 09/20/21 07:28 Penicillins Allergy Anaphylactic Verified 09/20/21 07:28 Shock Home Meds: Home Meds Allopurinol [Zyloprim] 300 mg PO DAILY 08/14/16 [History] Furosemide 40 mg PO DAILY 09/30/19 [History] Indomethacin 25 mg PO TID PRN 09/30/19 [History] Pantoprazole [ProTONIX] 40 mg PO ACBREAKFAST 09/30/19 [History] carvediloL [Coreg] 6.25 mg PO BID 09/30/19 [History] lisinopriL [Zestril] 20 mg PO DAILY 09/30/19 [History] EPINEPHrine [Epinephrine] 1 dose INJECT ASDIRECTED 12/02/19 [History] Past Medical History HEENT History: Reports: Allergic Rhinitis, Other (See Below) Other HEENT History: "overactive esophageal muscles" esophagoscopy with foreign body removal x3 Cardiovascular History: Reports: Hypertension Respiratory History: Reports: Asthma, COPD, Sleep Apnea Other Respiratory History: uses CPAP Gastrointestinal History: Reports: Gastritis, Other (See Below) Genitourinary History: Reports: None Musculoskeletal History: Reports: Arthritis, Gout Neurological History: Reports: None Psychiatric History: Reports: Depression Endocrine/Metabolic History: Reports: Obesity/BMI 30+ Hematologic History: Reports: None Immunologic History: Reports: None Oncologic (Cancer) History: Reports: None Dermatologic History: Reports: None, Other (See Below) Other Dermatologic History: has rash on legs - Infectious Disease History Infectious Disease History: Reports: Chicken Pox, Measles - Past Surgical History Head Surgeries/Procedures: Reports: None HEENT Surgical History: Reports: Other (See Below) Other HEENT Surgeries/Procedures: "throat stretched" Cardiovascular Surgical History: Reports: None Respiratory Surgical History: Reports: None GI Surgical History: Reports: Appendectomy, Esophageal Dilatation, Hernia Repair/Other Other GI Surgeries/Procedures: EGD with diaitation 10 yrs ago, esophagoscopy rigid with foreign body removal x3 Male Surgical History: Reports: None Endocrine Surgical History: Reports: None Neurological Surgical History: Reports: None Musculoskeletal Surgical History: Reports: None Oncologic Surgical History: Reports: None Dermatological Surgical History: Reports: None Social & Family History - Family History Family Medical History: No Pertinent Family History - Tobacco Use Tobacco Use Status *Q: Never Tobacco User - Caffeine Use Caffeine Use: Reports: Coffee, Energy Drinks - Alcohol Use Days Per Week of Alcohol Use: 2 Number of Drinks Per Day: 6 Total Drinks Per Week: 12 - Recreational Drug Use Recreational Drug Use: No - Living Situation & Occupation Living situation: Reports: Occupation: Employed ED ROS GENERAL - Review of Systems Review Of Systems: Comprehensive ROS is negative, except as noted in HPI. GI/Abdominal: Reports: Other (No abdominal pain. Patient states he has a small mass just above his rectum is been painful for some time) ED EXAM, GENERAL - Physical Exam Exam: See Below Free Text/Narrative:: CONSTITUTIONAL: well appearing in no acute distress SKIN: dry, and intact without rash HENT: Normocephalic, atraumatic, NECK: normal range of motion PULMONARY: normal chest rise and fall, no respiratory distress or stridor GI: No abdominal tenderness. Above the rectum the patient points to an area that is a lump but there is no marked discernible lump or erythema or fluctuance that is appreciated at this time. NEUROLOGIC: normal speech, moves all extremities, grossly non-focal MUSCULOSKELETAL: no gross deformities, atraumatic no midline lumbar vertebral tenderness. No flank tenderness PSYCHIATRIC: normal mood and affect Course - Vital Signs Text/Narrative:: Patient presents to the emergency department when he had abnormal lab draws. Patient states that his last creatinine was 1.9. This is about a month ago. I do not have access to these records but this is what he states. He states that about a month ago also his combine driver, Dr. De La Torre and adjusted his diuretic medication. Patient's laboratory tests were such that his creatinine was elevated and so he was sent into the emergency department. Patient in fact does have a creatinine of 4.5. CT scan shows no evidence of hydronephrosis. Patient's K is at acceptable levels. There is no respiratory distress with no hypoxia and clear lungs were no marked blood pressure elevation or acute indication for dialysis. I did speak to the patient's combine driver who recommended stopping lisinopril. Patient states he only takes in this medicine with gout flares. The combine driver will follow up with the patient tomorrow for continued treatment and management Last Recorded V/S: Last Vital Signs Temp 36.2 C 09/20/21 07:20 Pulse 88 09/20/21 07:20 Resp 20 09/20/21 07:20 BP 156/64 H 09/20/21 07:20 Pulse Ox - Orders/Labs/Meds Labs: Laboratory Tests 09/20/21 09/20/21 09/20/21 Range/Units 07:25 07:25 07:35 WBC 7.54 (4.0-11.0) K/uL RBC 2.89 L (4.50-5.90) M/uL Hgb 9.6 L (13.0-17.0) g/dL Hct 29.0 L (38.0-50.0) % MCV 100.3 H (80.0-98.0) fL MCH 33.2 H (27.0-32.0) pg MCHC 33.1 (31.0-37.0) g/dL RDW Std Deviation 48.7 (28.0-62.0) fl RDW Coeff of Ileana 13 (11.0-15.0) % Plt Count 232 (150-400) K/uL MPV 9.70 (7.40-12.00) fL Neut % (Auto) 56.8 (48.0-80.0) % Lymph % (Auto) 27.6 (16.0-40.0) % Woodward % (Auto) 8.0 (0.0-15.0) % Eos % (Auto) 7.3 H (0.0-7.0) % Baso % (Auto) 0.3 (0.0-1.5) % Neut # (Auto) 4.3 (1.4-5.7) K/uL Lymph # (Auto) 2.1 (0.6-2.4) K/uL Woodward # (Auto) 0.6 (0.0-0.8) K/uL Eos # (Auto) 0.6 (0.0-0.7) K/uL Baso # (Auto) 0.0 (0.0-0.1) K/uL Nucleated RBC % 0.0 /100WBC Nucleated RBCs # 0 K/uL Sodium 132 L (136-148) mmol/L Potassium 4.9 (3.5-5.1) mmol/L Chloride 95 L (98-107) mmol/L Carbon Dioxide 22.7 (21.0-32.0) mmol/L BUN 78 H (7.0-18.0) mg/dL Creatinine 4.5 H (0.8-1.3) mg/dL Est Cr Clr Drug Dosing 20.73 mL/min Estimated GFR (MDRD) 14.1 ml/min Glucose 107 H (74-106) mg/dL Calcium 9.1 (8.5-10.1) mg/dL Total Bilirubin 0.4 (0.2-1.0) mg/dL AST 20 (15-37) IU/L ALT 29 (14-63) IU/L Alkaline Phosphatase 62 (46-116) U/L Total Protein 7.8 (6.4-8.2) g/dL Albumin 3.9 (3.4-5.0) g/dL Globulin 3.9 (2.6-4.0) g/dL Albumin/Globulin Ratio 1.0 (0.9-1.6) Lipase 264 (73-393) U/L Urine Color Urine Appearance Urine pH (5.0-8.0) Ur Specific Forsyth (1.001-1.035) Urine Protein (NEGATIVE) mg/dL Urine Glucose (UA) (NEGATIVE) mg/dL Urine Ketones (NEGATIVE) mg/dL Urine Occult Blood (NEGATIVE) Urine Nitrite (NEGATIVE) Urine Bilirubin (NEGATIVE) Urine Urobilinogen (<2.0) EU/dL Ur Leukocyte Esterase (NEGATIVE) Urine RBC (0-2/HPF) Urine WBC (0-5/HPF) Ur Epithelial Cells (NONE-FEW) Urine Bacteria (NEGATIVE) Influenza Type A RNA NEGATIVE (NEGATIVE) RSV RNA (INAAT) NEGATIVE (NEGATIVE) Influenza Type B RNA NEGATIVE (NEGATIVE) SARS-CoV-2 RNA (ROXIE) NEGATIVE (NEGATIVE) 09/20/21 Range/Units 08:30 WBC (4.0-11.0) K/uL RBC (4.50-5.90) M/uL Hgb (13.0-17.0) g/dL Hct (38.0-50.0) % MCV (80.0-98.0) fL MCH (27.0-32.0) pg MCHC (31.0-37.0) g/dL RDW Std Deviation (28.0-62.0) fl RDW Coeff of Ileana (11.0-15.0) % Plt Count (150-400) K/uL MPV (7.40-12.00) fL Neut % (Auto) (48.0-80.0) % Lymph % (Auto) (16.0-40.0) % Woodward % (Auto) (0.0-15.0) % Eos % (Auto) (0.0-7.0) % Baso % (Auto) (0.0-1.5) % Neut # (Auto) (1.4-5.7) K/uL Lymph # (Auto) (0.6-2.4) K/uL Woodward # (Auto) (0.0-0.8) K/uL Eos # (Auto) (0.0-0.7) K/uL Baso # (Auto) (0.0-0.1) K/uL Nucleated RBC % /100WBC Nucleated RBCs # K/uL Sodium (136-148) mmol/L Potassium (3.5-5.1) mmol/L Chloride (98-107) mmol/L Carbon Dioxide (21.0-32.0) mmol/L BUN (7.0-18.0) mg/dL Creatinine (0.8-1.3) mg/dL Est Cr Clr Drug Dosing mL/min Estimated GFR (MDRD) ml/min Glucose (74-106) mg/dL Calcium (8.5-10.1) mg/dL Total Bilirubin (0.2-1.0) mg/dL AST (15-37) IU/L ALT (14-63) IU/L Alkaline Phosphatase (46-116) U/L Total Protein (6.4-8.2) g/dL Albumin (3.4-5.0) g/dL Globulin (2.6-4.0) g/dL Albumin/Globulin Ratio (0.9-1.6) Lipase (73-393) U/L Urine Color YELLOW Urine Appearance CLEAR Urine pH 6.0 (5.0-8.0) Ur Specific [place] 1.010 (1.001-1.035) Urine Protein NEGATIVE (NEGATIVE) mg/dL Urine Glucose (UA) NEGATIVE (NEGATIVE) mg/dL Urine Ketones NEGATIVE (NEGATIVE) mg/dL Urine Occult Blood TRACE-INTACT H (NEGATIVE) Urine Nitrite NEGATIVE (NEGATIVE) Urine Bilirubin NEGATIVE (NEGATIVE) Urine Urobilinogen 0.2 (<2.0) EU/dL Ur Leukocyte Esterase NEGATIVE (NEGATIVE) Urine RBC 0-2 (0-2/HPF) Urine WBC 0-1 (0-5/HPF) Ur Epithelial Cells RARE (NONE-FEW) Urine Bacteria RARE (NEGATIVE) Influenza Type A RNA (NEGATIVE) RSV RNA (INAAT) (NEGATIVE) Influenza Type B RNA (NEGATIVE) SARS-CoV-2 RNA (ROXIE) (NEGATIVE) Departure - Departure Time of Disposition: 11:02 Disposition: Home, Self-Care 01 Condition: Good Clinical Impression: TAHIRA (acute kidney injury) - Discharge Information Instructions: Acute Kidney Injury, Adult Forms: ED Department Discharge Additional Instructions: Return for any change or worsening condition. Please call your combine driver's office today, Dr. Narayan and and tell them that you are seen in the emergency department and Dr. Maguire and request to see you tomorrow in the office. Return for any change or worsening condition. The following information is given to patients seen in the emergency department who are being discharged to home. This information is to outline your options for follow-up care. We provide all patients seen in our emergency department with a follow-up referral. The need for follow-up, as well as the timing and circumstances, are variable depending upon the specifics of your emergency department visit. If you don't have a primary care physician on staff, we will provide you with a referral. We always advise you to contact your personal physician following an emergency department visit to inform them of the circumstance of the visit and for follow-up with them and/or the need for any referrals to a consulting specialist. The emergency department will also refer you to a specialist when appropriate. This referral assures that you have the opportunity for follow-up care with a specialist. All of these measure are taken in an effort to provide you with optimal care, which includes your follow-up. Primary care clinics in the area: [facility] [address] [place] [address] [place] [address] Under all circumstances we always encourage you to contact your private physician who remains a resource for coordinating your care. When calling for follow-up care, please make the office aware that this follow-up is from your recent emergency room visit. If for any reason you are refused follow-up, please contact the [facility] Emergency Department at and asked to speak to the emergency department charge nurse. Sepsis Event Note (ED) - Evaluation Sepsis Screening Result: No Definite Risk - Focused Exam Vital Signs: Vital Signs Temp Pulse Resp BP 12/16/21 07:20 36.2 C 88 20 156/64 H
[2021-09-20 08:10] LABS: CARBON DIOXIDE,CO2 22.7 mmol/L (21.0-32.0); POTASSIUM,K 4.9 mmol/L (3.5-5.1)
[2021-09-20 08:38] LABS: CORONAVIRUS COVID-19 NAA NEGATIVE (NEGATIVE); INFLUENZA A NAA NEGATIVE (NEGATIVE); INFLUENZA B NAA NEGATIVE (NEGATIVE); RESPIRATORY SYNCYTIAL VIR NAA NEGATIVE (NEGATIVE)
--- NOTE | 2021-09-20 10:05 | CT ---
Indication: Chronic kidney disease, acute injury, fell on back Technique: Volumetric multidetector CT images of the abdomen and pelvis were without the administration of intravenous contrast. Comparison: CT abdomen and pelvis of September 04, 2016 Findings: There is minimal basilar atelectasis and parenchymal scar. The liver is normal in attenuation without intrahepatic biliary ductal dilatation. The gallbladder is unremarkable without evidence of radiopaque calculus. There is no significant common biliary ductal dilatation or abrupt cut off. The spleen is normal in attenuation and size. The stomach and duodenum are grossly unremarkable. The pancreas is normal in attenuation without significant atrophy. The adrenal glands are unremarkable. There is no evidence of radiopaque calculus or hydronephrosis. There is moderate stool seen throughout the colon with minimal distal colonic diverticulosis. There is no evidence of diverticulitis. The appendix is unremarkable. There is no significant mesenteric, retroperitoneal, or pelvic sidewall lymph nodes. The aorta is nonaneurysmal. There is no significant atherosclerotic disease appreciated. The solid pelvic viscera are grossly unremarkable. There is no free fluid or free air. There is a small fat containing umbilical hernia. The lumbar vertebral body heights are grossly maintained with minimal endplate Schmorl`s defects. There is mild to moderate degenerative disc disease with disc height loss and marginal osteophyte formation. There is spondylosis of the inferior L5 particular processes. Degenerative changes of the sacroiliac joints are seen. Impression: No acute intra-abdominal abnormality. No evidence of obstructive calculus or hydronephrosis. Please note that all CT scans at this facility use dose modulation, iterative reconstruction, and/or weight-based dosing when appropriate to reduce radiation dose to as low as reasonably achievable. Dictated by Miguelangel Azevedo MD @ 09/20/2021 10:05:11 AM (Electronically Signed)
== END 2021-09-20 11:20 | disposition home or self-care (01) ==
LOC: MW.ED 07:14
DX: N17.9 Acute kidney failure, unspecified (principal); I10 Essential (primary) hypertension; M10.9 Gout, unspecified; J44.9 Chronic obstructive pulmonary disease, unspecified; E66.9 Obesity, unspecified; Z68.43 Body mass index [BMI] 50.0-59.9, adult; Z88.0 Allergy status to penicillin; Z91.040 Latex allergy status; Z88.8 Allergy status to other drugs, medicaments and biological substances; Z79.899 Other long term (current) drug therapy; Z20.822 Contact with and (suspected) exposure to COVID-19
CPT/HCPCS: 0241U; 74176; 80053; 81001; 83690; 85025; 99284

== ENCOUNTER 2024-11-26 13:59 | Emergency (ER) | payer OTHER ==
[2024-11-26] MEDS: Ketorolac 30 MG/ML SDV IM ONE (15:33)
[2024-11-26] MEDS: Lidocaine 4% Patch TOP ONE (15:33)
[2024-11-26 16:12] LABS: CALCIUM 9.5 mg/dL (8.5-10.1); CARBON DIOXIDE,CO2 33.6 mmol/L (21.0-32.0); CREATININE 1.2 mg/dL (0.8-1.3); EST CRCL DRUG DOSING (CG) 72.83 mL/min; POTASSIUM,K 2.9 mmol/L (3.5-5.1)
[2024-11-26] MEDS: Potassium Chloride 10% 20 MEQ/15 ML Soln 15 ML UD Cup PO ONE (17:30)
[2024-11-26] MEDS: amLODIPine 5 MG Tab PO ONE (17:38)
[2024-11-26 17:39] VITALS: BP 204/114
[2024-11-26 18:21] VITALS: PULSE 99
== END 2024-11-26 17:44 | disposition home or self-care (01) ==
LOC: MW.ED 13:59
DX: M54.6 Pain in thoracic spine (principal); M54.50 Low back pain, unspecified; M25.561 Pain in right knee; E87.6 Hypokalemia; I10 Essential (primary) hypertension; J44.89 Other specified chronic obstructive pulmonary disease; Z88.6 Allergy status to analgesic agent; Z91.040 Latex allergy status; Z88.0 Allergy status to penicillin; Z79.899 Other long term (current) drug therapy; W00.0XXA Fall on same level due to ice and snow, initial encounter; Y93.89 Activity, other specified
CPT/HCPCS: 36415; 72070; 72100; 73502; 73562; 73600; 80048; 96372; 99285; A9270; J1885